=== PATIENT | male | born 1950 | race Caucasian/White ===

== ENCOUNTER 2019-01-21 16:11 | Inpatient (IN) ==
[2019-01-21] MEDS ORDERED: TYLENOL PO PRN (19:17)
[2019-01-21] MEDS ORDERED: ZOFRAN IV PRN (19:17)
[2019-01-21] MEDS ORDERED: ZOFRAN PO PRN (19:21)
[2019-01-21] MEDS ORDERED: PHENERGAN PO PRN (19:21)
[2019-01-21] MEDS ORDERED: XANAX PO PRN (19:21)
[2019-01-21 20:23] LABS: BASO# 0.05 X1000 (0.0-0.2); BASO% 0.7 % (0.0-0.8); EOS# 0.19 X1000 (0.0-0.7); EOS% 2.8 % (0.0-10.0); HEMATOCRIT 36.8 % (42.0-52.0); HEMOGLOBIN 11.9 g/dL (14.0-18.0); IMM GRAN# 0.05 X1000 (0.0-0.04); IMM GRAN% 0.7 % (0.0-0.5); LYMPH# 1.71 X1000 (1.2-3.4); LYMPH% 25.1 % (20.5-51.1); MCH 32.8 PG (27-31); MCHC 32.3 g/dL (33-37); MCV 101.4 FL (81-99); MONO# 1.22 X1000 (0.11-0.59); MONO% 17.9 % (1.7-9.3); MPV 9.1 FL (7.4-10.4); NEUT% 52.8 % (42.2-75.2); PLT 280 X1000 (130-400); RBC 3.63 XMIL (4.7-6.1); RDW 13.5 % (11.5-14.5); WBC 6.82 X1000 (4.8-10.8)
[2019-01-21 20:34] LABS: INR 1.11; PROTIME 15.2 Seconds (11.0-16.0)
[2019-01-21 20:40] LABS: AGAP 11; ALB/GLOB RATIO 0.8; ALKALINE PHOSPHATASE 184 U/L (32-122); BUN 10 mg/dL (8-22); CALCIUM 8.6 mg/dL (8.8-10.2); CHLORIDE 99 mmol/L (98-107); COSMO 279; CREATININE 0.6 mg/dL (0.7-1.2); ESTIMATED GFR > 60; GLUCOSE 168 mg/dL (70-104); GOT 11 U/L (10-34); GPT 21 U/L (10-44); MAGNESIUM 2.3 mg/dL (1.5-2.7); POTASSIUM 3.3 mmol/L (3.5-5.1); SODIUM 138 mmol/L (136-145); TCO2 28 mmol/L (25-35); TOTAL BILIRUBIN 0.56 mg/dL (0.20-1.00)
[2019-01-21] MEDS ORDERED: KLOR-CON PO ONE (20:48)
[2019-01-21] MEDS ORDERED: NICODERM PATCH TD ONE (20:55)
[2019-01-21 20:58] LABS: URINE SOURCE CLEAN CATCH
[2019-01-21 21:03] LABS: BILIRUBIN URINE NEGATIVE (NEGATIVE); BLOOD URINE NEGATIVE (NEGATIVE); COLOR YELLOW; GLUCOSE URINE NEGATIVE (NEGATIVE); KETONE URINE NEGATIVE (NEGATIVE); LEUKOCYTES URINE NEGATIVE (NEGATIVE); NITRITE URINE NEGATIVE (NEGATIVE); PROTEIN URINE 30 mg/dL (NEGATIVE); SP GRAVITY URINE 1.016; TURBIDITY URINE CLEAR (CLEAR); UROBILINOGEN URINE 4 mg/dL (NORMAL)
[2019-01-21 21:09] LABS: UR EPITHELIAL CELLS <10 /HPF (<10); URINE BACTERIA NEGATIVE /HPF; URINE RBC <10 /HPF (<10); URINE WBC <10 /HPF (<10)
[2019-01-21 21:17] LABS: URINE CASTS NONE SEEN; URINE CRYSTALS CA OXALATE PRESENT; URINE YEAST NONE SEEN
--- NOTE | 2019-01-21 22:16 | HISTORY AND PHYSICAL ---
PRIMARY CARE PROVIDER: Dr. Bass. REASON FOR ADMISSION: Three-day history of chills and right upper quadrant pain. HISTORY OF PRESENT ILLNESS: Mr. Lloyd Chapman is a 68-year-old male with past medical history of pancreatic cancer, status post Whipple procedure in April of last year. He complains to his oncologist, Dr. Bass, that he had been having right upper quadrant pain with chills. Some blood cultures were drawn and he was positive for gram-negative rods. He was then referred to see Dr. Dangelo's office for possible stent. The patient had a CT scan done two days ago and it showed increase interval of amorphous pancreatic head mass with worsening surrounding peripancreatic inflammatory change and worsening hepatic metastatic disease. Dr. Dangelo saw the patient and recommended that in light of history of chills, possible infection, that he needs to be admitted for antibiotic treatment before any consideration for any stent may be offered. The patient admits to having intermittent dark urine for the last one week but no pruritus, no pale stools. He says he has pain in the right upper quadrant area and this started about the same time as the aforementioned chills, although there was no fever. He says the pain is dull and achy, nonradiating, worse with movement and eating and gets better when he keeps still. He denies any genitourinary complaints. No cardiorespiratory complaints other than a chronic cough. He also complains of chronic nausea, which he has been dealing with over the last one year, but this has not worsened, no vomiting. He experiences occasional constipation. He says since his diagnosis he has lost about 100 pounds. His appetite is as noted optimal for several months. REVIEW OF SYSTEMS: A 12-system review was done with positive findings as per HPI. ALLERGIES: No known allergies. HOME MEDICATIONS: He takes Xanax 0.5 mg p.r.n. He was also prescribed Augmentin 875 mg b.i.d., multivitamin tablets once a day, lidocaine cream p.r.n. to affected area, Phenergan 25 mg q six hours p.r.n., Protonix 40 mg daily, Reglan 10 mg t.i.d. with meals, vitamin D complex once daily, zinc 100 mg daily, Zofran 4 mg q six hours p.r.n., and [place] one q four hours p.r.n. SOCIAL HISTORY: Still smokes two packs a day. No alcohol or drug use. FAMILY HISTORY: Notable for heart disease, brain cancer, and diabetes. SURGICAL HISTORY: Other than the aforementioned Whipple procedure, he has had inguinal hernia repair, cholecystectomy, knee, shoulder, and back surgeries. LABORATORY WORK: White count 6000, hemoglobin 12, hematocrit 36, MCV 101, platelet count 280,000; grossly normal differential. Potassium 3.3, BUN 10, creatinine 0.3, glucose 168. Transaminases normal. Alkaline phosphatase 184. Albumin 3.0. PT 15. PTT 43. Blood cultures pending. Urinalysis is also pending. IMAGING: Chest films pending. PHYSICAL EXAMINATION: VITAL SIGNS: Blood pressure 122/78, heart rate 76, respiratory rate 16, temperature 97.6, 92% on room air. GENERAL: He is a middle-aged man who is not in acute distress. He is alert and oriented x3. Normal mood and affect. HEAD: Normocephalic, atraumatic. EYES: PERRLA. EOMI. He is anicteric, not pale. ENT: Oropharyngeal exam is grossly normal. NECK: Supple. No JVD or carotid bruits. No thyromegaly. No lymphadenopathy. CHEST: He has a few bibasilar crepitations, right greater than left. No wheezes. Decreased entry in the bases of the lungs. CARDIOVASCULAR: First and second heart sounds heard. No gallops or rubs. Rhythm is regular. ABDOMEN: Slightly protuberant. Soft with tenderness confined to the right upper quadrant. No rebound or guarding. No mass or organomegaly appreciated. Bowel sounds are normal. RECTAL: Exam is deferred at this time. EXTREMITIES: There is no edema, clubbing, or peripheral cyanosis. Pulses distally are 1+ in all extremities, regular and symmetrical. NEUROLOGIC: No focal deficits. SKIN: Intact. No breakdown lesions seen. MUSCULAR: Grossly normal. ASSESSMENT: 1. Pancreatic cancer. 2. Gram-negative jeffry bacteremia. Possibly from biliary source. 3. Probable chronic obstructive pulmonary disease. 4. Tobacco use. 5. Macrocytic anemia. PLAN: This patient will be started on Zosyn to cover for gram-negative rods and anaerobes in the biliary system. Blood cultures have been drawn. The patient will be treated symptomatically in the interim. Will consult Dr. Bass to see the patient and will suspect Dr. Dangelo will also be consulted to follow along. High dose NicoDerm patches will be administered for smoking cessation. DVT prophylaxis will also be instituted as patients with this malignancy are at increased risk for DVT and PE. Other than that, other supportive measures will be continued, i.e. antiemetics. Also, IV fluids. Replace potassium and transfer care to hospitalist team in the a.m. cc: MD Liam Trevino MD
--- NOTE | 2019-01-21 22:17 | Diag Imaging Result Doc PS360 ---
CHEST-2 VIEWS - 01/21/2019 INDICATION: bacteremia COMPARISON: 02/03/2018 FINDINGS: There is a right chest port in good position. There is some trace atelectasis in the lateral left lung base. No infiltrates or edema. No pneumothorax or significant pleural effusion. Heart size is normal. IMPRESSION: Trace linear atelectasis in the lateral left lung base. Electronically signed by Andrey Saul 01/21/2019 10:15 PM
[2019-01-21] MEDS: LOVENOX SUBQ SCH (23:06)
[2019-01-21] MEDS: ZOSYN 3.375 GM in NS 50 ML IV SCH (23:07)
[2019-01-21] MEDS: NS 1,000 ML IV SCH (23:07)
[2019-01-21] MEDS: NORCO-7.5 PO PRN (23:26)
[2019-01-22] MEDS: NS 1,000 ML IV SCH ×5 (02:16→21:12)
[2019-01-22] MEDS: REGLAN PO SCH ×4 (05:06→16:28)
[2019-01-22] MEDS: ZOSYN 3.375 GM in NS 50 ML IV SCH ×4 (05:06→23:51)
[2019-01-22 07:58] LABS: TSH 2.65 uIUmL (0.27-4.20)
[2019-01-22] MEDS: PROTONIX PO SCH (08:28)
[2019-01-22] MEDS: CENTRUM SILVER PO SCH (08:28)
[2019-01-22] MEDS: NORCO-7.5 PO PRN (08:28)
[2019-01-22] MEDS: ZINC SULFATE PO SCH (08:28)
[2019-01-22] MEDS: NICODERM PATCH TD SCH (08:31)
--- NOTE | 2019-01-22 08:40 | HEMO/ONC CONSULTATION ---
DATE: 01/22/2019 CHIEF COMPLAINT: We are being consulted for further management for the patient's metastatic pancreatic cancer. HISTORY OF PRESENT ILLNESS: Mr. Chapman is a 68-year-old male that presented to the office on Saturday, not feeling well, in for his next round of chemotherapy. At that time, he had some fevers, chills, and right upper quadrant pain. At that time, due to fevers blood cultures were drawn, and the patient was also found in the office that day to have an elevated total bilirubin of 3.13. Due to the right upper quadrant pain, he was also sent for CT scan. The next day, he came back for results and was found to may have an obstruction there, and he was referred to Dr. Dangelo for an ERCP as soon as possible. Blood cultures did come back gram- negative diplococci at that time as well. So, the patient was sent to the hospital to be admitted for IV antibiotics for his bacteremia, and once the patient has had a couple rounds of antibiotics, would hopefully have ERCP with Dr. Dangelo while he is in the hospital. Mr. 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 The patient underwent pancreatic duodenectomy and wedge resection of liver lesion on 02/18/2018. He received Gemzar adjuvant chemotherapy that was started in May of 2018. Due to recurrent issues with abdominal wound infections, only received 3 cycles at that time. On 12/12/2018, PET scan showed diffuse metastatic disease, and on 12/29/2018 patient was started on Gemzar and Abraxane therapy. PAST MEDICAL HISTORY: Pancreatic cancer. PAST SURGICAL HISTORY: Inguinal hernia repair, shoulder, knee surgeries, back surgery and Whipple procedure. SOCIAL HISTORY: Smokes 2 packs a day. No alcohol or illicit drug use. FAMILY HISTORY: Heart disease, brain cancer and diabetes. ALLERGIES: No known drug allergies. HOME MEDICATIONS: Xanax, Augmentin, multivitamin, Phenergan, Protonix, vitamin D, zinc, Zofran and [place]. REVIEW OF SYSTEMS: Negative as mentioned in HPI. PHYSICAL EXAM: Vital Signs: Temperature 97.9 degrees, heart rate 59, respiratory rate 18, blood pressure 120/72, satting 96% on room air. General: Patient is awake, lying in bed, no acute distress noted. HEENT: Anicteric. Pupils PERRLA. Mucous membranes moist. Neck: Supple. Trachea midline. No JVD. Lymph node survey: No palpable lymphadenopathy. Cardiovascular: S1, S2. Regular rate and rhythm. Chest: Bilateral breath sounds. Clear to auscultation. Abdomen: Soft, mildly tender in right upper quadrant. No hepatosplenomegaly noted. Extremities: Warm, dry and intact. No edema. Skin: No petechiae, no rashes. No clubbing, no cyanosis. Neurologic: Alert and oriented x3. No focal deficits noted. LABORATORY DATA: White blood cell count 6.82, hemoglobin 11.9, hematocrit 36.8, platelets are 280. Potassium 3.3, BUN 10, creatinine 0.6. Total bilirubin 0.56. ASSESSMENT AND PLAN: 1. Metastatic pancreatic cancer: Just received last dose of chemotherapy on 01/05/2019 with Abraxane only. At this time chemotherapy is on hold until patient gets better. 2. Gram-negative bacteremia: Continue antibiotics as ordered by primary medical team. Continue to monitor closely. 3. Cholangitis: Plan is for the patient to have endoscopic retrograde cholangiopancreatography on Saturday with Dr. Dangelo. Continue to monitor closely. Continue recommendations per Primary Care and Gastroenterology. 4. Tobacco abuse: Nicotine cessation education given. Plan of care is discussed with Dr. Bass. Dictated by AKOSUA Mojica for Liam Bass MD Patient seen and examined. As above. Patient has a history of metastatic pancreatic cancer as described above. Recently he presented with shaking chills. We obtained blood cultures and started him on Augmentin. Lab data revealed mildly increasing bilirubin and culture data revealed gram-negative rods suggesting cholangitis. He was admitted for IV antibiotics and ERCP with possible stent placement. Liam Bass M.D. cc: AKOSUA Mojica MD [facility]
--- NOTE | 2019-01-22 15:46 | PROGRESS NOTE ---
DATE: 01/22/2019 SUBJECTIVE: The patient resting comfortably in bed. OBJECTIVE: Vital signs: Vital signs are as follows: Temperature 97.7 degrees, pulse 64, respiratory rate 16, blood pressure 127/86, O2 saturation is 95%. HEENT: Atraumatic, normocephalic. Cardiovascular system: S1, S2. Respiratory system: Has evidence of good air entry bilaterally. Abdomen: Soft, nontender. No masses felt. Extremities: No evidence of edema. Central nervous system: No obvious focal deficit noted. LABORATORY DATA: Ferritin level 779, B 12 level 1448, folate 16.3, TSH 2.65. ASSESSMENT AND PLAN: 1. Gram-negative bacteremia. Continue antibiotics and follow up on culture report. 2. Cholangitis. Possibly endoscopic retrograde cholangiopancreatography will be done by the Gastroenterology team. Continue antibiotics 3. Metastatic pancreatic cancer. Oncology following. 4. Nicotine use. Nicotine patch recommended. 5. Chronic obstructive pulmonary disease. Use nebulized bronchodilators as needed. 6. Deep vein thrombosis prophylaxis. Sequential compression devices. 7. Gastrointestinal prophylaxis. Proton pump inhibitor. cc: Rene Wood MD [facility]
[2019-01-22] MEDS: LOVENOX SUBQ SCH (19:52)
[2019-01-23] MEDS: ZOSYN 3.375 GM in NS 50 ML IV SCH ×2 (04:02→12:26)
[2019-01-23] MEDS: NS 1,000 ML IV SCH (04:02)
[2019-01-23] MEDS: REGLAN PO SCH ×2 (06:22→12:25)
[2019-01-23 06:46] LABS: BASO# 0.05 X1000 (0.0-0.2); BASO% 0.8 % (0.0-0.8); EOS# 0.18 X1000 (0.0-0.7); EOS% 2.9 % (0.0-10.0); HEMATOCRIT 36.1 % (42.0-52.0); HEMOGLOBIN 11.7 g/dL (14.0-18.0); IMM GRAN# 0.07 X1000 (0.0-0.04); IMM GRAN% 1.1 % (0.0-0.5); LYMPH# 1.98 X1000 (1.2-3.4); LYMPH% 32.4 % (20.5-51.1); MCH 32.7 PG (27-31); MCHC 32.4 g/dL (33-37); MCV 100.8 FL (81-99); MONO# 1.07 X1000 (0.11-0.59); MONO% 17.5 % (1.7-9.3); MPV 9.1 FL (7.4-10.4); NEUT# 2.76 X1000 (1.4-6.5); NEUT% 45.3 % (42.2-75.2); PLT 253 X1000 (130-400); RBC 3.58 XMIL (4.7-6.1); RDW 13.3 % (11.5-14.5); WBC 6.11 X1000 (4.8-10.8)
[2019-01-23 07:30] LABS: AGAP 10; ALB/GLOB RATIO 0.7; ALBUMIN 2.6 g/dL (3.5-5.0); ALKALINE PHOSPHATASE 151 U/L (32-122); BUN 4 mg/dL (8-22); CALCIUM 7.9 mg/dL (8.8-10.2); CHLORIDE 105 mmol/L (98-107); COSMO 279; CREATININE 0.6 mg/dL (0.7-1.2); ESTIMATED GFR > 60; GLUCOSE 146 mg/dL (70-104); GOT 11 U/L (10-34); GPT 14 U/L (10-44); POTASSIUM 4.1 mmol/L (3.5-5.1); SODIUM 140 mmol/L (136-145); TCO2 25 mmol/L (25-35); TOTAL BILIRUBIN 0.46 mg/dL (0.20-1.00); TOTAL PROTEIN 6.3 g/dL (6.3-8.3)
--- NOTE | 2019-01-23 08:21 | HEMO/ONC PROGRESS NOTE ---
DATE: 01/23/2019 SUBJECTIVE: The patient denies any complaints at this time. Patient is slightly feeling better. OBJECTIVE: Vital Signs: Temperature 97.9 degrees, heart rate 58, respiratory rate 19, blood pressure is 143/66, saturation 99% on room air. General: Patient is awake, lying in bed, no acute distress noted. HEENT: Anicteric. Pupils PERRLA. Mucous membranes moist. Cardiovascular: S1, S2. Regular rate and rhythm. Chest: Bilateral breath sounds clear to auscultation. Abdomen: Soft, nontender. Bowel sounds present in all 4 quadrants Neurologic: Alert and oriented x3. No focal deficits noted. LABORATORY DATA: White blood cell count 6.11, hemoglobin 11.7, hematocrit 36.1, platelets are 253,000. Potassium 4.1, BUN 4, creatinine 0.6, total bilirubin 0.46. ASSESSMENT AND PLAN: 1. Metastatic pancreatic cancer: Chemotherapy on hold at this time until patient gets better. Continue to monitor. 2. Gram-negative bacteremia: Continue antibiotics as ordered per primary medical team. Continue to monitor closely. 3. Cholangitis: Gastroenterology has been consulted. Continue to monitor. Continue recommendations per primary and gastroenterology. 4. Supportive care: Continue to help patient get out of bed as much as possible. Continue to have patient work on strength exercises. Plan of care was discussed with Dr. Bass. Dictated by AKOSUA Mojica for Liam Bass MD cc: AKOSUA Mojica MD
[2019-01-23] MEDS ORDERED: CULTURELLE PO SCH (09:00)
[2019-01-23] MEDS ORDERED: XANAX PO PRN (09:37)
[2019-01-23] MEDS: NICODERM PATCH TD SCH (09:51)
[2019-01-23] MEDS ORDERED: XYLOCAINE-MPF 2% ONE (10:38)
[2019-01-23] MEDS ORDERED: ROBINUL ONE (10:38)
[2019-01-23] MEDS ORDERED: VERSED ONE (10:38)
[2019-01-23] MEDS ORDERED: DIPRIVAN 1% ONE (10:38)
--- NOTE | 2019-01-23 12:01 | PROGRESS NOTE ---
DATE: 01/23/2019 SUBJECTIVE: The patient is resting comfortably in bed. He denies having any pain or fever. OBJECTIVE: Vital Signs: Temperature 97.8 degrees, blood pressure 147/66, heart rate 59, respirations 16, and O2 saturation 95% on room air. General: This is a chronically ill-appearing elderly male lying in bed in no acute distress. Heart: S1, S2. Normal. Bradycardic. Lungs: Equal air entry bilaterally. No wheezing. No rales. No rhonchi. Abdomen: Positive bowel sounds. Soft, nontender, and nondistended. Extremities: No edema. No cyanosis. No calf tenderness. Neurologic: The patient is alert and oriented x3. LABORATORY: Sodium 140, potassium 4.1, chloride 105, CO2 25, BUN 4, creatinine 0.6 glucose 146, calcium 7.9, AST 11, ALT 14, alkaline phosphatase 151. White blood cell count 6.1, hemoglobin 11, hematocrit 36, and platelets 253,000. ASSESSMENT AND PLAN: 1. Cholangitis. The patient's blood cultures done as outpatient are growing gram-negative rods. The patient is currently on Zosyn. He is also scheduled for an ERCP today. Further management as per GI. 2. Metastatic pancreatic cancer. Aware. Management as per Dr. Bass. 3. Bacteremia. So far, the cultures done in the hospital remain negative. We will continue with antibiotic therapy. 4. Deep vein thrombosis prophylaxis. The patient is on Lovenox. cc: Aye eHath MD MTDD
[2019-01-23 12:09] VITALS: BP 149/86
[2019-01-23] MEDS: PROTONIX PO SCH (12:24)
[2019-01-23] MEDS: ZINC SULFATE PO SCH (12:24)
[2019-01-23] MEDS: CENTRUM SILVER PO SCH (12:24)
--- NOTE | 2019-01-23 14:50 | OPERATIVE NOTE ---
PROCEDURE DATE: 01/23/2019 PROCEDURE: Esophagogastroduodenoscopy. PREOPERATIVE DIAGNOSIS: Cholangitis possibly ERCP. POSTOPERATIVE DIAGNOSIS: Status post pancreatic duodenectomy with Candace-en-Y. Unable to locate ampullary area. Free amount of bile in the examined portion of the small bowel. DESCRIPTION OF PROCEDURE: After informed consent and adequate intravenous sedation by Anesthesia under general, the scope introduced in the esophagus which is normal. Cardia, fundus and body normal. The patient has what appears to be antrectomy and pancreatoduodenectomy with Candace-en-Y. There is bile throughout bowel loops, however, I could not locate the ampullary area which is not unusual. The scope was withdrawn. The patient tolerated the procedure well without any immediate complications. The patient is better. Recent blood cultures were negative. The patient can be discharged outpatient on p.o. antibiotics. cc: Kell Dangelo MD
--- NOTE | 2019-01-23 17:35 | INFECTIOUS DISEASE CONSULT REP ---
DATE: 01/23/2019 CONCLUSION: The patient has an E coli bacteremia. I think it originates from an intra-abdominal focus related to the fact that the patient has disseminated pancreatic cancer. RECOMMENDATIONS: I agree with sending the patient home. I have through the computer produced a prescription for Levaquin 500 mg daily for a total of 2 weeks. DISCUSSION: The patient has metastatic pancreatic cancer. He for the past 3 weeks has had fever and chills. He has not had any cough or dysuria. He is not complaining of any abdominal pain. Laboratory studies thus far show a CBC with a white count of 6110, hemoglobin 11.7, and platelet count of 253,000. Creatinine is 0.6. GFR is greater than 60. Alkaline phosphatase was 151. Urinalysis showed no white cells or bacteria. Blood culture grew E coli. Repeat blood culture and urine culture are negative. Chest x-ray shows a left basilar atelectasis. PAST MEDICAL HISTORY/REVIEW OF SYSTEMS: Eyes and ears: He denies any trouble hearing or seeing. Neck: No stiffness. Respiratory: No cough or shortness of breath. GI: No nausea, vomiting, or diarrhea. : No dysuria or flank pain. Integument: No rash. Neurologic: No seizures. No loss of motor or sensory function recently. Endocrine: The patient is not a diabetic and he does not have thyroid disease. PREVIOUS HOSPITALIZATIONS AND OPERATIONS: He has had a Whipple procedure. He has also had infections of the incision 2 separate times and it occurred after he received chemotherapy. The patient has also had shoulder surgery, knee surgeries, and laminectomy. The patient does not have any metallic material in him or any other foreign material in him. MEDICAL DISEASES: Positive for pancreatic cancer. INFECTIOUS DISEASE HISTORY: Negative for UTI and pneumonia. FAMILY HISTORY: Positive for diabetes mellitus and cancer. SOCIAL HISTORY: [place] He smokes cigarettes. He does not drink alcoholic beverages or abuse drugs. He has a dog as a pet. He delivers newspapers. ALLERGIES: The patient's chart lists no known drug allergies. MEDICATIONS: His medicines taken at home include 1. Augmentin. 2. Alprazolam. 3. Hydrocodone. 4. Reglan. 5. Vitamins and minerals. 6. Zofran. 7. Protonix. 8. Phenergan. PHYSICAL EXAMINATION: Vital Signs: Temperature is 97.7 degrees, pulse 61, respirations 14, blood pressure 147/66. The patient weighs 185 pounds. General: This is a somewhat ill-appearing elderly male. He is in no acute distress. Head, eyes, ears, nose, and throat: He can hear my spoken words and see near objects. He does not have any white patches on his tongue. I did not see any necrotic teeth or teeth with caries. Neck: No stiffness. Lungs: Clear to auscultation. Cardiovascular: Regular heart rate. Abdomen: Soft and nontender. The patient's incision from his Whipple procedure is intact. It is not erythematous or draining. Neurologic: The patient is alert. He can move his extremities. There is no tremor. Integument: No rash noted. Thank you for the consult. cc: Florentin Celis MD
--- NOTE | 2019-01-24 07:12 | DISCHARGE SUMMARY ---
ADMISSION DATE: 01/21/2019 DISCHARGE DATE: 01/23/2019 FINAL DISCHARGE DIAGNOSES: 1. Cholangitis. 2. Gram-negative bacteremia. 3. Metastatic pancreatic cancer. 4. Anemia of chronic disease. PROCEDURES PERFORMED: EGD which revealed bile in the small bowel. CONSULTATIONS REQUESTED DURING THIS HOSPITAL STAY: GI consultation with Dr. Dangelo. HOSPITAL COURSE: Mr. Chapman is a 68-year-old male with a history of metastatic pancreatic cancer who was admitted with suspicion of cholangitis. Prior to admission, the patient had blood cultures done at Dr. Bass's office that revealed gram-negative rods. The patient was admitted for further treatment and evaluation. GI was consulted and an ERCP was attempted; however, the endoscopy this was unable to locate the ampullary area. The patient underwent an EGD instead which revealed bile in the small bowel. The patient was seen by Dr. Celis who recommended Levaquin 500 mg oral daily. DISCHARGE MEDICATIONS: 1. Levaquin 500 mg p.o. daily. 2. Protonix 40 mg p.o. daily. 3. Phenergan 25 mg p.o. every 6 hours p.r.n. 4. [place] 7.5/325 one tab oral every 6 hours p.r.n. 5. Xanax 0.5 mg p.o. q.6 hours p.r.n. 6. Multivitamin 1 tab oral daily. DISCHARGE DIET: GI soft diet. ACTIVITY: As tolerated. FOLLOWUP INSTRUCTIONS: The patient will need to follow up with Dr. Bass as scheduled by his clinic. cc: Aye Heath MD
== END 2019-01-23 15:02 | disposition home or self-care (01) | DRG 445 ==
LOC: SUATTDRO 16:11 → DIRADM 16:11 → 3N 17:18
PROVIDERS: ATTEND Internal Medicine
PROC: EN.ERCP (2019-01-23 11:10)
CPT/HCPCS: 71020; 71046; 74160; 74328; 80053; 81001; 82607; 82728; 82746; 83735; 84443; 85025; 85610; 85730; 87040; 87088; A9270; J1650; J2250; J2543; J7030; Q9966; Q9967

== ENCOUNTER 2020-01-11 12:46 | Inpatient (IN) ==
[2020-01-11] MEDS ORDERED: NS 1,000 ML IV ONE (13:15)
[2020-01-11 14:02] LABS: BASO# 0.01 X1000 (0.0-0.2); BASO% 0.2 % (0.0-0.8); EOS# 0.03 X1000 (0.0-0.7); EOS% 0.6 % (0.0-10.0); HEMATOCRIT 42.1 % (42.0-52.0); IMM GRAN# 0.06 X1000 (0.0-0.04); IMM GRAN% 1.1 % (0.0-0.5); LYMPH# 0.35 X1000 (1.2-3.4); LYMPH% 6.6 % (20.5-51.1); MCH 34.5 PG (27-31); MCHC 33.3 g/dL (33-37); MCV 103.7 FL (81-99); MONO# 0.46 X1000 (0.11-0.59); MONO% 8.7 % (1.7-9.3); NEUT# 4.38 X1000 (1.4-6.5); NEUT% 82.8 % (42.2-75.2); RBC 4.06 XMIL (4.7-6.1); RDW 13.1 % (11.5-14.5); WBC 5.29 X1000 (4.8-10.8)
[2020-01-11 14:05] LABS: PLT 3 X1000 (130-400)
[2020-01-11 14:06] LABS: AGAP 12; ALKALINE PHOSPHATASE 309 U/L (32-122); BUN 16 mg/dL (8-22); CALCIUM 8.5 mg/dL (8.8-10.2); CHLORIDE 101 mmol/L (98-107); COSMO 281; CREATININE 0.5 mg/dL (0.7-1.2); ESTIMATED GFR > 60; GLUCOSE 199 mg/dL (70-104); GOT 58 U/L (10-34); GPT 20 U/L (10-44); POTASSIUM 5.1 mmol/L (3.5-5.1); SODIUM 137 mmol/L (136-145); TCO2 24 mmol/L (25-35); TOTAL PROTEIN 6.3 g/dL (6.3-8.3)
[2020-01-11 14:09] LABS: EOS 2 % (1-10); LYMPHS 6 % (21-51); MONO 2 % (1-9); SEGS 90 % (42-75)
[2020-01-11] MEDS ORDERED: NS 500 ML IV ONE (14:54)
[2020-01-11] MEDS ORDERED: NORCO-10 PO PRN (15:22)
[2020-01-11] MEDS ORDERED: PHENERGAN PO PRN (15:22)
[2020-01-11 15:30] LABS: INR 1.28; PROTIME 16.7 Seconds (11.0-16.0)
--- NOTE | 2020-01-11 15:43 | Diag Imaging Result Doc PS360 ---
EXAM: CHEST-2 VIEWS HISTORY: r/o pna TECHNIQUE: Two views COMPARISON: None. FINDINGS: The lungs are well expanded except for atelectasis or scarring in the left lung base. The heart is not enlarged. Right jugular portacatheter. No pneumothorax. The vessels are not distended. There are no infiltrates. No pleural effusions. IMPRESSION: No pneumonia Electronically signed by Ludwin Rojas 01/11/2020 3:40 PM
--- NOTE | 2020-01-11 15:44 | Diag Imaging Result Doc PS360 ---
EXAM: ABDOMEN FLAT/UPRIGHT HISTORY: n/v/abd pain TECHNIQUE: Two views COMPARISON: None. FINDINGS: No free air beneath the diaphragm. No organomegaly. Prominent stool throughout the colon. No bowel obstruction. Calcifications are sutures in the mid left abdomen. There are pelvic phleboliths. IMPRESSION: Severe constipation Electronically signed by Ludwin Rojas 01/11/2020 3:42 PM
[2020-01-11] MEDS ORDERED: ZOFRAN IV PRN (15:48)
[2020-01-11] MEDS ORDERED: NS 1,000 ML IV SCH (15:48)
--- NOTE | 2020-01-11 16:04 | EKG Report ---
Test Performed on : 01/11/2020 1:17:47 PM Test Reason : weakness Blood Pressure : / mmHG Vent. Rate : 097 BPM Atrial Rate : 097 BPM P-R Int : 138 ms QRS Dur : 088 ms QT Int : 346 ms P-R-T Axes : 033 063 052 degrees QTc Int : 439 ms Normal sinus rhythm. Normal ECG When compared with ECG of 03-FEB-2018 11:11, No significant change was found Unconfirmed Result
[2020-01-11] MEDS: DUONEB (A & A) INH SCH ×2 (16:17→22:16)
[2020-01-11 16:23] LABS: URINE SOURCE CLEAN CATCH
--- NOTE | 2020-01-11 16:45 | HISTORY AND PHYSICAL ---
PRIMARY CARE PROVIDER: No one. PRIMARY ONCOLOGIST: Liam Bass MD CHIEF COMPLAINT: Weakness, dizziness, bruises, shortness of breath, exhaustion for at least 2 weeks and a 20 pound weight loss in a month. HISTORY OF PRESENT ILLNESS: Mr. Lloyd Chapman is a 69-year-old male with a medical history of pancreatic cancer with liver metastasis for at least the last year and a half, also history of chronic nausea with anxiety, chronic pain syndrome, and he smokes 2 packs of cigarettes per day. States that for the last 2 weeks he has had weakness, shortness of breath with activity, nausea, vomiting, dizziness, bruises that he is not sure how even got them and constipation. His last bowel movement was about a week ago. Symptoms have progressively gotten worse. So, he came in to seek medical attention. He has also had a 20 pound weight loss in the past month. Platelet count here is 3. We will transfuse him with platelets and send him to [facility] for further evaluation and treatment with a consult in for Dr. Bass. PAST MEDICAL HISTORY: 1. Pancreatic cancer with liver metastasis for year and a half status post Whipple. 2. Chronic nausea. 3. Anxiety. 4. Chronic pain syndrome. 5. Most likely COPD as he is a heavy smoker. SURGICAL HISTORY: 1. Port placement. 2. Whipple procedure. 3. Bilateral knee surgery. 4. Back surgery. 5. Left shoulder surgery. SOCIAL HISTORY: Two pack per day smoker since the age of 19. No chewing tobacco. No alcohol. No illicit drug use. , 1 child. Walks without difficulties. FAMILY HISTORY: Mother had uterine cancer. Father had metastasized cancer with unknown primary source. ALLERGIES: No known drug allergies. HOME MEDICATIONS: 1. Trazodone 25 mg p.o. nightly. 2. Moxifloxacin 400 mg p.o. daily. 3. Climax 1 tablet p.o. 4 times a day p.r.n. 4. Phenergan 25 mg p.o. every 6 hours p.r.n. 5. Potassium 20 mEq p.o. twice daily. 6. Protonix 40 mg p.o. daily. 7. Reglan 10 mg p.o. 4 times a day. 8. Xanax 0.5 mg p.o. t.i.d. p.r.n. REVIEW OF SYSTEMS: Fourteen point review of systems are complete and all are negative except for those mentioned above HPI. PHYSICAL EXAMINATION: VITAL SIGNS: Temperature 98.2 degrees, heart rate 92, respiratory rate 25, blood pressure 127/82, O2 saturation 90% on 2 L nasal cannula. GENERAL: Mr. Lloyd Chapman is a 69-year-old male. He is in no acute distress. He is able to answer questions appropriately. HEENT: Atraumatic, normocephalic. Pupils equal, round, reactive to light. Extraocular movements intact. Mucous membranes are dry. NECK: Trachea midline. CARDIOVASCULAR: S1, S2. Tachycardic rate and rhythm. No rubs, gallops, murmurs. No lower extremity edema, +2 dorsalis and radial pulses. Negative JVD or carotid bruits. PULMONARY: Clear to auscultation. Bilateral breath sounds decreased in the bases. No accessory muscle use or work of breathing noted. He is tolerating 2 L nasal cannula. GASTROINTESTINAL: Soft tender in the left upper quadrant. Positive bowel sounds x4 but hypoactive. EXTREMITIES: Decreased range of motion. Equal strength. NEUROLOGIC: A and O x3. Follows commands. Sensory is intact. SKIN: Warm, dry, intact. LABORATORY DATA: White blood cells 5000, hemoglobin 14, hematocrit 42, platelet count 3000. INR is 1.28, PTT is 43. Sodium 137, potassium 5.1, BUN 16, creatinine 0.5, glucose 199, calcium 8.5, bilirubin is 1.00, AST 58, ALT 20, alkaline phosphatase is 309, albumin 3.0, amylase 16. IMAGING: Abdominal x-ray, no report yet. Chest x-ray, no report yet. ASSESSMENT AND PLAN: 1. Pancreatic cancer with metastasis to the liver, now status post Whipple procedure. He had radiation 2 weeks ago and states he has been having symptoms of dizziness, nausea, vomiting, bruising, constipation, weight loss. We will consult Dr. Bass. 2. Nausea, vomiting, weight loss, and constipation. We will add an antiemetic and stool softener. Follow up on the abdominal x-ray. 3. Thrombocytopenia, most likely with platelet dysfunction. He has got bruises all over his body that he is not sure where he even got them. He denies any active bleeding. We will give a pack of platelets for now. 4. Anxiety. Continue p.r.n. Xanax. 5. Chronic pain syndrome. Continue Climax 10s. 6. Dehydration to continue IV fluids. 7. Weight loss. Regular diet, nutritional consult, antiemetics for the nausea, Protonix for the reflux. 8. Tobacco abuse, cessation discussed. No nicotine patch for now. We will add that if he requests for it again. Dictated by AKOSUA Stacy for Jamaal Fernandez MD cc: AKOSUA Stacy MD
[2020-01-11 16:51] LABS: BILIRUBIN URINE SMALL (NEGATIVE); BLOOD URINE LARGE (NEGATIVE); COLOR YELLOW; GLUCOSE URINE NEGATIVE (NEGATIVE); KETONE URINE 20 mg/dL (NEGATIVE); LEUKOCYTES URINE NEGATIVE (NEGATIVE); NITRITE URINE NEGATIVE (NEGATIVE); PROTEIN URINE 70 mg/dL (NEGATIVE); SP GRAVITY URINE 1.028; TURBIDITY URINE HAZY (CLEAR); UR EPITHELIAL CELLS <10 /HPF (<10); URINE BACTERIA NEGATIVE /HPF; URINE RBC TNTC /HPF (<10); URINE SMALL ROUND CELLS NONE SEEN; URINE WBC <10 /HPF (<10); UROBILINOGEN URINE 4 mg/dL (NORMAL)
[2020-01-11 16:52] LABS: URINE CASTS NONE SEEN; URINE CRYSTALS URIC ACID PRESENT; URINE YEAST NONE SEEN
[2020-01-11] MEDS ORDERED: RELISTOR SUBQ ONE (18:59)
[2020-01-11] MEDS ORDERED: FLEET ENEMA PR ONE (19:01)
[2020-01-11] MEDS ORDERED: OFIRMEV 1000 MG/ISOTONIC SOLN 1,000 MG/100 ML BOTTLE IV PRN (19:01)
[2020-01-11] MEDS: REGLAN PO SCH ×2 (20:25→20:27)
[2020-01-11] MEDS: DESYREL PO SCH (20:27)
[2020-01-11] MEDS: TYLENOL PO PRN (20:28)
[2020-01-11] MEDS: XANAX PO PRN (20:29)
[2020-01-11 20:36] LABS: BASO# 0.01 X1000 (0.0-0.2); BASO% 0.2 % (0.0-0.8); EOS# 0.03 X1000 (0.0-0.7); EOS% 0.6 % (0.0-10.0); HEMATOCRIT 40.7 % (42.0-52.0); HEMOGLOBIN 13.3 g/dL (14.0-18.0); IMM GRAN# 0.04 X1000 (0.0-0.04); IMM GRAN% 0.7 % (0.0-0.5); LYMPH# 0.35 X1000 (1.2-3.4); LYMPH% 6.5 % (20.5-51.1); MCH 33.9 PG (27-31); MCHC 32.7 g/dL (33-37); MCV 103.8 FL (81-99); MONO% 9.3 % (1.7-9.3); MPV 9.7 FL (7.4-10.4); NEUT# 4.45 X1000 (1.4-6.5); NEUT% 82.7 % (42.2-75.2); PLT 9 X1000 (130-400); RBC 3.92 XMIL (4.7-6.1); RDW 13.2 % (11.5-14.5); WBC 5.38 X1000 (4.8-10.8)
[2020-01-11] MEDS: PERICOLACE PO SCH (20:36)
[2020-01-11] MEDS: MIRALAX PO SCH (20:42)
[2020-01-11] MEDS: CLINIMIX E 4.25%-5% SOLUTION 1,000 ML IV SCH (20:52)
[2020-01-11] MEDS: LIPOSYN 20% 250 ML IV SCH (20:53)
[2020-01-11] MEDS ORDERED: KLOR-CON PO SCH (21:00)
--- NOTE | 2020-01-11 21:50 | PROGRESS NOTE ---
DATE: 01/11/2020 Patient has a known history of cancer, currently on chemotherapy with Dr. Bass. He presented to the hospital not feeling well. Upon evaluation, he was noted to have a platelet count of 3000. We are going to admit in the hospital. IV fluids. Follow his blood pressures, give him platelet transfusion. Recheck and we will follow. We will consult Dr. Bass. cc: Jamaal Fernandez MD
[2020-01-11] MEDS: PULMICORT INH SCH (22:16)
[2020-01-12] MEDS: DUONEB (A & A) INH SCH ×4 (03:55→22:52)
[2020-01-12] MEDS: PROTONIX PO SCH (06:04)
[2020-01-12] MEDS: TYLENOL PO PRN (06:04)
[2020-01-12] MEDS: XANAX PO PRN ×3 (06:04→22:28)
[2020-01-12] MEDS: REGLAN PO SCH ×4 (06:05→21:34)
[2020-01-12 07:25] LABS: EOS# 0.03 X1000 (0.0-0.7); EOS% 0.6 % (0.0-10.0); HEMOGLOBIN 13.5 g/dL (14.0-18.0); IMM GRAN# 0.03 X1000 (0.0-0.04); IMM GRAN% 0.6 % (0.0-0.5); LYMPH# 0.17 X1000 (1.2-3.4); LYMPH% 3.7 % (20.5-51.1); MCH 35.1 PG (27-31); MCHC 34.6 g/dL (33-37); MCV 101.3 FL (81-99); MONO# 0.34 X1000 (0.11-0.59); MONO% 7.3 % (1.7-9.3); NEUT# 4.08 X1000 (1.4-6.5); NEUT% 87.8 % (42.2-75.2); RBC 3.85 XMIL (4.7-6.1); RDW 13.2 % (11.5-14.5); WBC 4.65 X1000 (4.8-10.8)
[2020-01-12 07:48] LABS: EOS 2 % (1-10); LYMPHS 6 % (21-51); SEGS 90 % (42-75)
[2020-01-12 07:52] LABS: AGAP 15; ALB/GLOB RATIO 0.9; ALBUMIN 2.8 g/dL (3.5-5.0); ALKALINE PHOSPHATASE 295 U/L (32-122); BUN 13 mg/dL (8-22); CALCIUM 8.3 mg/dL (8.8-10.2); CHLORIDE 102 mmol/L (98-107); COSMO 285; CREATININE 0.5 mg/dL (0.7-1.2); ESTIMATED GFR > 60; GLUCOSE 238 mg/dL (70-104); GOT 54 U/L (10-34); GPT 17 U/L (10-44); PLT 6 X1000 (130-400); POTASSIUM 4.7 mmol/L (3.5-5.1); SODIUM 139 mmol/L (136-145); TCO2 22 mmol/L (25-35); TOTAL BILIRUBIN 1.29 mg/dL (0.20-1.00); TOTAL PROTEIN 5.8 g/dL (6.3-8.3)
[2020-01-12] MEDS: PULMICORT INH SCH ×2 (08:08→22:52)
[2020-01-12 08:15] LABS: RETIC% 1.88 % (0.8-2.1); RETIC-HE 39.3 PG (28.2-36.6)
[2020-01-12] MEDS: MIRALAX PO SCH ×2 (08:34→21:34)
[2020-01-12] MEDS: PERICOLACE PO SCH ×2 (08:34→21:34)
[2020-01-12] MEDS: CLINIMIX E 4.25%-5% SOLUTION 1,000 ML IV SCH ×2 (08:34→22:27)
[2020-01-12] MEDS ORDERED: FLEET ENEMA PR PRN (09:00)
[2020-01-12] MEDS ORDERED: LEVAQUIN PO SCH (09:00)
[2020-01-12 09:04] LABS: IRON SATURATION 62 %; TIBC 154 ug/dL; TOTAL IRON 95 ug/dL (53-167); UNBOUND IRON 59 ug/dL (112-346)
--- NOTE | 2020-01-12 09:47 | PROVIDER DOCUMENTATION ---
This chart was entered by Lissa Kruger Scribe, acting as scribe for Jo Cyr MD. HPI-General Adult - General Chief Complaint: Weakness Stated Complaint: AMS Time Seen by Provider: 01/11/20 13:05 Source: patient, family Allergies/Adverse Reactions: Patient Allergies Allergy/AdvReac Type Severity Reaction Status Date / Time No Known Allergies Allergy Verified 01/11/20 13:08 Home Medications: Home Medication List Medication Instructions Recorded Confirmed Last Taken Type Metoclopramide [Reglan] 10 mg PO 4XDAY 05/20/18 01/11/20 01/21/19 09:00 History 10 mg Pantoprazole [Protonix] 40 mg PO DAILY 05/20/18 01/11/20 01/21/19 07:00 History 40 mg Promethazine [Phenergan] 25 mg PO Q6H PRN PRN 05/20/18 01/11/20 07/24/18 History Alprazolam [Xanax] 0.5 mg PO TID PRN 11/04/19 01/11/20 Unknown History Hydrocodone/Acetaminophen [[place] 1 tab PO 4XDAY PRN 11/04/19 01/11/20 Unknown History 10-325 Tablet] Potassium Chloride 20 meq PO BID 11/04/19 01/11/20 Unknown History Moxifloxacin [Avelox] 400 mg PO DAILY 01/11/20 01/11/20 Unknown History Trazodone [Desyrel] 25 mg PO QHS 01/11/20 01/11/20 Unknown History - History of Present Illness -Gen Adult Nature of Presenting Problems: Patient is a 69 year old male who presents with multiple complaints. States symptoms of weight loss, fatigue, weakness, nausea, vomiting and abdominal pain. History of pancreatic cancer with mets to liver that is followed by Dr. Bass. Family reports patient is currently on chemo and radiation. Location of Pain/Injury: reports: abdomen Pain Radiation: reports: no radiation Quality of Pain: reports: aching Severity: reports: mild Onset/Duration: reports: gradual Timing: reports: still present, getting worse Associated Symptoms: reports: fatigue, nausea, vomiting, weakness, other (weight loss) Similar Symptoms Previously?: Yes Recently seen or treated by another doctor?: No Review of Systems - Adult - REVIEW OF SYSTEMS - ADULT Constitutional: reports: see HPI, fatique, weight loss Eyes: reports: no symptoms reported Ears, Nose, Mouth & Throat: reports: no symptoms reported Cardiovascular: reports: no symptoms reported Respiratory: reports: no symptoms reported Gastrointestinal: reports: see HPI, abdominal pain, nausea, vomiting Genitourinary: reports: no symptoms reported Musculoskeletal: reports: see HPI, muscle weakness Integumentary: reports: no symptoms reported Neurological: reports: no symptoms reported Psychiatric: reports: no symptoms reported Endocrine: reports: no symptoms reported Hematologic/Lymphatic: reports: no symptoms reported Allergic/Immunologic: reports: no symptoms reported All Other Systems: Reviewed and Negative Past History - Adult - PAST MEDICAL HISTORY-ADULT Review of Records: reports: Old Records Reviewed, Nursing Assessment Review, Medications Reviewed, Social history reviewed & non-contributory. Major Childhood Illnesses: reports: denies history Cardiovascular: reports: denies history Respiratory: reports: denies history Gastrointestinal: reports: cancer (pancreatic with mets to liver), div erticulosis Obstetrical/Gynecological: reports: denies history Genitourinary: reports: denies history Musculoskeletal: reports: denies history Neurological: reports: denies history Psychiatric: reports: anxiety Endocrine/Immune: reports: denies history Other Conditions: reports: denies history - PRIOR SURGERIES/PROCEDURES Surgical/Procedure History: reports: orthopedic (extremity), back/neck - IMMUNIZATION STATUS Childhood Immunizations: See Nurse Assessment Flu Vaccine: See Nurse Assessment - FAMILY HISTORY Family History: reviewed, not pertinent - SOCIAL HISTORY Smoking: cigarettes, greater than 1 pack/day Provider spent 3-5 mins advising pt. on dangers of tobacco.: Discussed manners to quit use, and f/u contacts for add'l counseling. Substance Use: denies Living Situation: family Physical Exam-General - PHYSICAL EXAM-ADULT Initial Vital Signs Reviewed: Yes - CONSTITUTIONAL General Appearance: alert, no apparent distress, thin. negative: lethargic - HEAD, EARS, NOSE, MOUTH & THROAT HENMT: normocephalic/atraumatic, moist mucous membranes - RESPIRATORY Respiratory: chest non-tender, lungs clear, normal breath sounds. negative: rhonchi - CARDIOVASCULAR Cardiovascular: regular rate, rhythm. negative: tachycardia - GASTROINTESTINAL (ABDOMEN) Abdominal Exam: normal bowel sounds, soft, tenderness (epigastric). negative: guarding - MUSCULOSKELETAL Extremity: non-tender, normal inspection. negative: pedal edema - SKIN Integumentary: normal color, normal turgor, warm/dry. negative: diaphoresis - NEUROLOGIC Neurologic: grossly normal. negative: aphasia, facial droop - PSYCHIATRIC Psych/Mental Status: normal mood/affect, normal thought content, normal thought process, oriented x 3. negative: paranoid Progress - PLAN OF CARE/RESULTS Progress/Plan/Lab Results: Vital Signs - 8 hr 01/11/20 12:54 Temperature 98.2 F Pulse Rate 101 H Respiratory Rate 18 Blood Pressure 128/75 O2 Sat by Pulse Oximetry 97 Orders Category Date Time Status Saline Loc NOW Care 01/11/20 13:15 Active CBC WITH DIFF [HEME] Stat Lab 01/11/20 13:15 Uncollected COMPREHENSIVE METABOLIC PANEL [CHEM] Stat Lab 01/11/20 13:15 Uncollected 0.9% Sodium Chloride Inj [Ns] 1,000 ml Med 01/11/20 13:15 Active IV 999 mls/hr Result Diagrams: 01/12/20 06:47 01/12/20 06:47 - EKG 1 Time of EKG reading by physician:: 13:17 EKG Read and Signed by:: Jo Cyr EKG Interpretation (*Must complete 3 of following elements*): Normal Rate: 97 Rhythm: NSR [place]: normal QRS: normal IA Interval: normal ST Wave: normal Comments: normal ECG - XRAY 1 XRAY Study: Chest Impression: See EMR Report ( EXAM: CHEST-2 VIEWS HISTORY: r/o pna TECHNIQUE: Two views COMPARISON: None. FINDINGS: The lungs are well expanded except for atelectasis or scarring in the left lung base. The heart is not enlarged. Right jugular portacatheter. No pneumothorax. The vessels are not distended. There are no infiltrates. No pleural effusions. IMPRESSION: No pneumonia Electronically signed by Ludwin Rojas 01/11/2020 3:40 PM 01/11/20 1540 Interpreting Physician: Ludwin Rojas MD Dictated Date/Time: 01/11/20 154 cc: Cheri Noland; None,PCP) 2 XRAY Study: Abdomen Impression: See EMR Report ( Signed EXAM: ABDOMEN FLAT/UPRIGHT HISTORY: n/v/abd pain TECHNIQUE: Two views COMPARISON: None. FINDINGS: No free air beneath the diaphragm. No organomegaly. Prominent stool throughout the colon. No bowel obstruction. Calcifications are sutures in the mid left abdomen. There are pelvic phleboliths. IMPRESSION: Severe constipation Electronically signed by Ludwin Rojas 01/11/2020 3:42 PM 01/11/20 1542 Interpreting Physician: Ludwin Rojas MD Dictated Date/Time: 01/11/20 1540 cc: Cheri Noland; None,PCP) - CONSULTS/PCP/HOSPITALIST Notification #1 *Consult/PCP/Hospitalist*: Dr. Fernandez Time Discussed: 14:21 Reason/Comments: Dr. Cyr consulted with Dr. Fernandez about patient. Consult Disposition: Will see in ED, Admit Departure - Departure Date of Disposition Decision: 01/11/20 Time of Disposition Decision: 14:22 DIAGNOSIS: Thrombocytopenia, Anorexia, Dehydration, Weight loss Disposition: ADMITTED INPATIENT 09 Certified Medical Emergency: Emergent Condition: Good - Critical Care Note This patient required my direct & personal management of CC.: No Attestation - Physician/ TONJA Attestation Patient care was provided by Advanced Practice Provider:: No The physician spent face to face time with patient:: Yes Advanced Practice Provider documentation review:: Supervising physician onsite and consulted in the evaluation and care of this patient. The physician did have a face to face encounter with the patient. This chart was documented by the indicated scribe, (Lissa Kruger Scribe) and accurately reflects the services I performed and decisions made by , Jo Cyr MD, as attested by the provider's signature.
[2020-01-12] MEDS: NICODERM PATCH TD SCH (09:51)
[2020-01-12] MEDS ORDERED: GAMUNEX-C 10% IV STA (11:25)
[2020-01-12 12:24] LABS: FERRITIN 1447 ng/mL (30-400)
[2020-01-12] MEDS: GAMUNEX C IV SCH (13:40)
[2020-01-12] MEDS: DILUENT IV SCH (13:40)
--- NOTE | 2020-01-12 17:26 | HEMO/ONC CONSULTATION ---
DATE: 01/12/2020 REASON FOR CONSULTATION: He is a known patient of ours for the treatment of metastatic pancreatic adenocarcinoma. HISTORY OF PRESENT ILLNESS: Mr. Chapman is a 69-year-old male with a history of pancreatic adenocarcinoma with liver metastasis. The patient is being treated in her office with 5-FU and Onivyde, and most recently we sent him for SIR-Spheres (liver radiation) procedure with Dr. Cristo Hope. The patient had his first procedure on 10/22/2019. This made the patient feel very bad for approximately 2 weeks and then he improved. The patient chose to hold chemotherapy while he is going through this radiation because of how bad it made him feel. The patient had his second procedure on 12/28/2019. The patient's came into clinic to tell us that since then, he has not eaten. He has been throwing up. He has got a terrible productive cough. He has gotten so weak, he is having difficulty taking himself to the bathroom and even getting up and down. She was instructed to call an ambulance and bring the patient to the hospital. On arrival to the ER, the patient was noted to have a 20 pound weight loss. He was covered in a significant amount of bruises that he states he is not even sure how he got them. He complains of constipation, shortness of breath, weakness, vomiting, dizziness. His lab evaluation revealed a platelet count of 3000. The patient was admitted for further evaluation and treatment. The patient's last treatment with chemotherapy was on 10/19/2019. He was last seen in our office on 12/08/2019, with a platelet count of a 138,000. PAST MEDICAL HISTORY: 1. Pancreatic cancer with liver metastasis, status post Whipple. 2. Chronic nausea. 3. Anxiety. 4. Chronic pain syndrome. 5. COPD. SURGICAL HISTORY: 1. Port placement. 2. Bilateral knee surgery. 3. Back surgery. 4. Left shoulder surgery. 5. Pancreatic duodenectomy and wedge resection of the liver lesion on 02/18/2018. 6. SIR-Spheres on 12/23/2018 and 12/28/2019. SOCIAL HISTORY: The patient smoked 2 packs a day since the age of 19. Denies alcohol or illicit drug use. ALLERGIES: No known drug allergies. HOME MEDICATIONS: 1. Trazodone. 2. Moxifloxacin. 3. [place]. 4. Phenergan. 5. Potassium. 6. Protonix. 7. Reglan. 8. Xanax. PHYSICAL EXAMINATION: Vital Signs: Temperature 97.7 degrees, pulse rate 95, respiratory rate 20, blood pressure 139/82, O2 saturation 94% on room air. He denies any pain. General: This is an elderly, chronically ill-appearing gentleman, does not appear to feel well. HEENT: Sclerae anicteric. PERRLA. Oral mucosa is very dry. Cardiovascular: Normal S1, S2. Tachycardic rate and rhythm. No murmurs noted. Respiratory: Lung sounds are clear to auscultation, although seems somewhat diminished at the bases. Abdomen: Soft, tender to palpation in the upper quadrants. Bowel sounds are present but hypoactive. Extremities: No lower extremity edema noted. Neurological: Alert and oriented x3. No focal motor deficits noted. Skin: Bilateral upper extremities have numerous ecchymoses. LABORATORY DATA: WBC is 4.65, hemoglobin 13.5, hematocrit 39.0, platelet count 6000, reticulocyte count 1.88, fibrinogen 337. D-dimer 14.53. PT 16.7, PTT 43, INR 1.28. Iron 95, iron percent saturation 62, ferritin 1447, total bilirubin 1.29, AST 54, ALT 17, alkaline phosphatase 295, LDH 676. RADIOLOGY: Abdominal x-ray shows severe constipation. Chest x-ray shows no pneumonia. ASSESSMENT: 1. Pancreatic cancer with metastasis to the liver. The patient has had a decrease in performance status since being referred for SIR-Spheres Y-[address] Hope. He had his second procedure done approximately 2 weeks ago. His states he has not eaten and gotten weaker and weaker. Chemotherapy is currently on hold. We will continue to monitor. 2. Nausea, vomiting, and weight loss. Keep the patient with antiemetics around the clock and agree with Clinimix. Provide protein shakes or LiquiCell as he will tolerate. 3. Constipation. Provide the patient with stool softeners or MiraLAX. 4. Severe thrombocytopenia. 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 The patient was given 1 dose of platelets which were consumed by the next morning. The plan is to provide him with 1 dose of IVIG today. Give him 1 unit of platelets afterwards and draw a CBC 1 hour after platelets. Depending on that number, we may or may not determine to add another unit of platelets. Call the physician with a platelet count after the first unit of platelets. The patient will receive a second dose of IVIG tomorrow. 5. Anxiety. Continue the patient's Xanax. 6. Chronic pain syndrome. Continue his pain medication. 7. Dehydration. Continue his IV fluids and IV nutrition as you are doing. 8. Tobacco abuse. Provide the patient with a nicotine patch if requested. He has been given education and encouragement several times and he has no interest in quitting at this time. Dictated by AKOSUA Ruffin for Liam Bass MD As above. Severe thrombocytopenia. Not responding to multiple platelet transfusion. Most likely immune platelet destruction. Poor candidate for steroids. Start IVIG. Will follow with you. Liam Bass MD cc: Liam Bass MD MTDD
--- NOTE | 2020-01-12 17:33 | PROGRESS NOTE ---
DATE: 01/12/2020 PRIMARY CARE PHYSICIAN: He has no primary care physician. He is followed by Dr. Liam Bass. CHIEF COMPLAINT: He came in with weakness, dizziness, bruises, shortness of breath, exhaustion for least 2 weeks, 20-pound weight loss in the last month, presented on 01/11/2020. PAST MEDICAL HISTORY: 1. Again, pancreatic cancer with liver metastasis for a year and a half, status post Whipple. 2. Chronic nausea. 3. Anxiety. 4. Chronic pain syndrome. 5. Most likely chronic obstructive pulmonary disease. He is a heavy smoker. SURGICAL HISTORY: 1. Port placement. 2. Whipple's procedure. 3. Bilateral knee surgery. 4. Back surgery. 5. Left shoulder surgery. HISTORY OF PRESENT ILLNESS: He is a 59-year-old with past medical history of pancreatic cancer with metastasis for at least the last year and a half. Also history of chronic nausea, anxiety, chronic pain syndrome. He smokes 2 packs of cigarettes a day. For the last 2 weeks, he has had weakness and shortness of breath with activity, nausea, vomiting, dizziness, bruises not sure how they got there and complains of constipation. Last bowel movement was about a week before he came in, progressively got worse. He came to seek medical attention. Also complains of 20 pounds weight loss in the last month. Platelet count here is 3 and was transfused platelets and sent to [facility] for evaluation and Dr. Bass is following. HOME MEDICATIONS: Trazodone 25 mg at night, moxifloxacin 400 mg daily, [place] 1 q.4 hours p.r.n., Phenergan 25 mg q.6 hours p.r.n., potassium 20 mEq p.o. twice a day, Protonix 40 mg a day, Reglan 10 mg 4 times a day, and Xanax 0.4 mg t.i.d. p.r.n., ADMISSION DIAGNOSES: 1. Pancreatic cancer, metastasis to the liver, now status post Whipple's procedure. He has had radiation 2 weeks ago, status post been having symptoms of dizziness, nausea, vomiting, bruising, constipation, weight loss. 2. Nausea, vomiting, weight loss, constipation. He is getting antiemetics and stool softeners. 3. Thrombocytopenia with bruising and no sign of active bleeding. 4. Anxiety. He gets Xanax p.r.n. 5. Chronic pain syndrome. He is on [place]. 6. Dehydration. Getting IV fluids. 7. Weight loss. Encouraging p.o. intake and states that he feels a little better today. PHYSICAL EXAMINATION: Vital Signs: Temperature 98.2 degrees, pulse 101, respirations 19, blood pressure 144/87. HEENT: Pupils are equal and round. Lungs: Clear in all lung zaldivar. Cardiovascular: Regular rhythm and rate without murmur or S3. Abdomen: Soft, nontender, nondistended. Blood pressure 144/87. ASSESSMENT AND PLAN: History of pancreatic cancer with metastasis followed by Dr. Bass. He came in with a platelet count of 3000. We gave him a platelet transfusion. Current orders: He is getting IV immunoglobulin 10% 20 g. He is getting trazodone 25 mg at bedtime. He is on Xanax 0.5 mg p.o. t.i.d., Pulmicort 0.5 mg b.i.d. He is on Clinimix I believe at 75 mL an hour. He had some immunoglobulin I believe another 40 g total. Getting Reglan for nausea. Nicotine patch. MiraLAX 17 g p.o. b.i.d., sennoside docusate 1 twice a day and he got some methylnaltrexone own 8 mg yesterday, 1 dose. LABORATORY DATA: Today, white count 4650, hematocrit is 39. Platelet count was 6000. Sodium 139, potassium 4.7, chloride 102. BUN 13, creatinine 0.5. cc: Mauricio Mendosa MD
[2020-01-12 21:17] LABS: BASO# 0.01 X1000 (0.0-0.2); BASO% 0.2 % (0.0-0.8); EOS# 0.07 X1000 (0.0-0.7); EOS% 1.3 % (0.0-10.0); HEMATOCRIT 37.5 % (42.0-52.0); HEMOGLOBIN 12.4 g/dL (14.0-18.0); IMM GRAN# 0.09 X1000 (0.0-0.04); IMM GRAN% 1.7 % (0.0-0.5); LYMPH% 5.7 % (20.5-51.1); MCHC 33.1 g/dL (33-37); MCV 102.7 FL (81-99); MONO# 0.55 X1000 (0.11-0.59); MONO% 10.4 % (1.7-9.3); NEUT# 4.28 X1000 (1.4-6.5); NEUT% 80.7 % (42.2-75.2); RBC 3.65 XMIL (4.7-6.1); RDW 13.3 % (11.5-14.5)
[2020-01-12 21:20] LABS: PLT 9 X1000 (130-400)
[2020-01-12] MEDS: DESYREL PO SCH (21:34)
[2020-01-12 21:38] LABS: BANDS 1 % (0-1); EOS 1 % (1-10); LYMPHS 4 % (21-51); MONO 8 % (1-9); SEGS 85 % (42-75)
[2020-01-12 21:47] LABS: BASO# 0.02 X1000 (0.0-0.2); BASO% 0.4 % (0.0-0.8); EOS# 0.04 X1000 (0.0-0.7); EOS% 0.8 % (0.0-10.0); HEMATOCRIT 36.2 % (42.0-52.0); IMM GRAN# 0.07 X1000 (0.0-0.04); IMM GRAN% 1.4 % (0.0-0.5); LYMPH# 0.24 X1000 (1.2-3.4); MCH 34.1 PG (27-31); MCHC 33.1 g/dL (33-37); MCV 102.8 FL (81-99); MONO# 0.47 X1000 (0.11-0.59); MONO% 9.7 % (1.7-9.3); MPV 11.5 FL (7.4-10.4); NEUT# 3.99 X1000 (1.4-6.5); NEUT% 82.7 % (42.2-75.2); RBC 3.52 XMIL (4.7-6.1); RDW 13.4 % (11.5-14.5); WBC 4.83 X1000 (4.8-10.8)
[2020-01-12 21:48] LABS: PLT 10 X1000 (130-400)
[2020-01-12] MEDS: NS 1,000 ML IV SCH (22:27)
[2020-01-12] MEDS: LIPOSYN 20% 250 ML IV SCH (22:27)
[2020-01-13] MEDS: DUONEB (A & A) INH SCH ×4 (03:59→21:03)
[2020-01-13] MEDS: REGLAN PO SCH ×4 (06:38→21:14)
[2020-01-13] MEDS: PROTONIX PO SCH (06:38)
[2020-01-13] MEDS: NS 1,000 ML IV SCH (06:52)
[2020-01-13] MEDS: MIRALAX PO SCH ×2 (08:08→21:14)
[2020-01-13] MEDS: NICODERM PATCH TD SCH (08:08)
[2020-01-13] MEDS: PERICOLACE PO SCH ×2 (08:08→21:14)
[2020-01-13] MEDS: DILUENT IV SCH ×2 (10:04→12:29)
[2020-01-13] MEDS: GAMUNEX C IV SCH ×2 (10:04→12:29)
[2020-01-13 10:43] LABS: BASO# 0.01 X1000 (0.0-0.2); BASO% 0.2 % (0.0-0.8); EOS# 0.01 X1000 (0.0-0.7); EOS% 0.2 % (0.0-10.0); HEMATOCRIT 36.1 % (42.0-52.0); IMM GRAN# 0.07 X1000 (0.0-0.04); IMM GRAN% 1.6 % (0.0-0.5); LYMPH# 0.25 X1000 (1.2-3.4); LYMPH% 5.8 % (20.5-51.1); MCH 34.2 PG (27-31); MCHC 33.2 g/dL (33-37); MCV 102.8 FL (81-99); MONO# 0.43 X1000 (0.11-0.59); MPV 8.2 FL (7.4-10.4); NEUT# 3.54 X1000 (1.4-6.5); NEUT% 82.2 % (42.2-75.2); PLT 6 X1000 (130-400); RBC 3.51 XMIL (4.7-6.1); RDW 13.5 % (11.5-14.5); WBC 4.31 X1000 (4.8-10.8)
[2020-01-13] MEDS: PULMICORT INH SCH ×2 (11:00→21:00)
[2020-01-13 11:01] LABS: BANDS 6 % (0-1); LYMPHS 2 % (21-51); MONO 10 % (1-9); SEGS 82 % (42-75)
[2020-01-13 11:22] LABS: AGAP 9; ALB/GLOB RATIO 0.8; ALBUMIN 2.9 g/dL (3.5-5.0); ALKALINE PHOSPHATASE 276 U/L (32-122); BUN 14 mg/dL (8-22); CALCIUM 8.2 mg/dL (8.8-10.2); CHLORIDE 102 mmol/L (98-107); COSMO 277; CREATININE 0.5 mg/dL (0.7-1.2); ESTIMATED GFR > 60; GLUCOSE 206 mg/dL (70-104); GOT 61 U/L (10-34); GPT 18 U/L (10-44); MAGNESIUM 1.9 mg/dL (1.5-2.7); POTASSIUM 4.8 mmol/L (3.5-5.1); SODIUM 135 mmol/L (136-145); TCO2 24 mmol/L (25-35); TOTAL BILIRUBIN 1.47 mg/dL (0.20-1.00); TOTAL PROTEIN 6.4 g/dL (6.3-8.3)
--- NOTE | 2020-01-13 13:29 | HEMO/ONC PROGRESS NOTE ---
DATE: 01/13/2020 SUBJECTIVE: Mr. Chapman is sitting up, awake and alert in his bed this morning. He has been brought a breakfast tray but he states he is not very interested in it. He states he will try to eat some of it. He claims that he does feel better than he did yesterday. However, nursing staff comes in to tell me that he got confused last night and they had placed him in the chair for a little while. He attempted to get out of the chair, falling over and putting a hole in the sheet rock of the wall. The patient was placed back in bed and continued to be rather confused for most of the evening. The patient is completely oriented this morning, does not recall being confused. He does recall falling and putting a hole in the wall. The patient denies any pain. He did have a skin tear due to his fall. He denies any complaints. OBJECTIVE: Vital Signs: Temperature 97.9 degrees, pulse rate 93, respiratory rate 18, blood pressure 140/88, O2 saturation 91% on nasal cannula at 2 L. He is in 0/10 pain. Physical Examination: General: The patient appears cachectic but in no acute distress. Cardiovascular: Normal S1, S2. Heart rate and rhythm regular. Respiratory: Lungs are clear to auscultation. Abdomen: Soft, nontender, nondistended. Extremities: No lower extremity edema noted. Upper extremities have extensive bruising and a skin tear to the left elbow. Neurological: Alert and oriented at the time of the examination. No focal motor deficits noted. Laboratory: WBCs 4.31, hemoglobin 12, hematocrit 36, platelet count 6000. Sodium 135, potassium 4.8. Total bilirubin 1.47, alkaline phosphatase 276, albumin 2.9. ASSESSMENT AND PLAN: 1. Idiopathic thrombocytopenic purpura. Yesterday, we ordered an IVIG infusion to be followed by 1 unit of platelets. After the unit of platelets, we requested a CBC to be drawn one hour after. The patient's platelets were 10,000, confirming immune platelet destruction. He is a poor candidate for steroids. He will have his second dose of IVIG today, followed by another unit of platelets. We are obtaining Promacta for him. We are continuing to monitor closely. 2. Pancreatic cancer with metastasis to the liver. The patient has been declining over the past several weeks since receiving SIR-Spheres Y-90 procedure. In the last 2 weeks, he has become weaker. We are currently holding therapy at this time. We will continue to monitor. 3. Nausea, vomiting, and weight loss. Continue to provide the patient with antiemetics as requested. Provide him with protein shakes, LiquiCell, or snacks as he requests. 4. Constipation. Continue to provide the patient with stool softeners and MiraLAX. 5. Dehydration. Continue repletion as you are doing. 6. Anxiety. Continue his Xanax as necessary. 7. Chronic pain syndrome. He is on [place]. Continue medical management. Dictated by AKOSUA Ruffin for Liam Bass MD ITP s/p 1 dose of IVIG. Will get 2nd dose today. Will also get him started on Promacta sample, if we have in the clinic. So far no response to IVIG. Discussed DNR. He wants to discuss with family and make decision. MD Liam Casas MD cc: Liam Bass MD [facility]
[2020-01-13] MEDS: XANAX PO PRN (15:36)
[2020-01-13] MEDS: TYLENOL PO PRN (15:37)
[2020-01-13] MEDS: PATIENT'S OWN MED - CHEMO PO SCH (15:52)
[2020-01-13] MEDS: CLINIMIX E 4.25%-5% SOLUTION 1,000 ML IV SCH (17:16)
--- NOTE | 2020-01-13 17:38 | PROGRESS NOTE ---
DATE: 01/13/2020 SUBJECTIVE: Mr. Chapman's platelet count is still low. Otherwise, he feels about the same. He has not had any active bleeding. OBJECTIVE: Temperature 98.1 degrees, pulse 97, respirations 17, and blood pressure 155/96. Pupils are equal and round. Lungs are clear in all lung zaldivar. Cardiovascular: Regular rhythm and rate without murmur or S3. ASSESSMENT AND PLAN: 1. Idiopathic thrombocytopenic purpura. He is status post splenectomy. They have given IVIG infusions, but so far has not done a lot. We will give another unit of platelets. Dr. Bass is following. The patient's platelets were 10,000 confirming immune platelet destruction. He is a poor candidate for steroids so will get another dose of IVIG today, and followed by another unit platelets. Trying to obtain the okay to use Promacta. 2. Pancreatic cancer with metastasis to the liver. The patient has been declining in the past several weeks, and since receiving his SIR spheres Y 90 procedure in the last 2 weeks, he has become weaker. 3. Nausea, vomiting, and weight loss. Continue antiemetics. He is getting some protein shakes and snacks, and encouraging p.o. intake. 4. Constipation. He is on stool softeners and MiraLAX. 5. Dehydration. 6. Anxiety. Continue Xanax as necessary. 7. Chronic pain syndrome. He is on [place]. cc: Mauricio Mendosa MD
[2020-01-13] MEDS: DESYREL PO SCH (21:14)
[2020-01-14] MEDS: DUONEB (A & A) INH SCH ×4 (03:05→21:00)
[2020-01-14] MEDS: XANAX PO PRN (03:57)
[2020-01-14] MEDS: PROTONIX PO SCH (06:11)
[2020-01-14] MEDS: REGLAN PO SCH ×4 (06:11→20:07)
[2020-01-14 08:10] LABS: BASO# 0.02 X1000 (0.0-0.2); BASO% 0.4 % (0.0-0.8); EOS# 0.02 X1000 (0.0-0.7); EOS% 0.4 % (0.0-10.0); HEMATOCRIT 36.7 % (42.0-52.0); HEMOGLOBIN 12.3 g/dL (14.0-18.0); IMM GRAN# 0.09 X1000 (0.0-0.04); LYMPH# 0.36 X1000 (1.2-3.4); MCH 34.1 PG (27-31); MCHC 33.5 g/dL (33-37); MCV 101.7 FL (81-99); MONO# 0.43 X1000 (0.11-0.59); MONO% 9.5 % (1.7-9.3); NEUT% 79.7 % (42.2-75.2); PLT 9 X1000 (130-400); RBC 3.61 XMIL (4.7-6.1); RDW 13.8 % (11.5-14.5); WBC 4.52 X1000 (4.8-10.8)
[2020-01-14 08:18] LABS: AGAP 9; ALB/GLOB RATIO 0.6; ALBUMIN 2.9 g/dL (3.5-5.0); ALKALINE PHOSPHATASE 330 U/L (32-122); BUN 16 mg/dL (8-22); CALCIUM 8.6 mg/dL (8.8-10.2); CHLORIDE 103 mmol/L (98-107); COSMO 276; CREATININE 0.6 mg/dL (0.7-1.2); ESTIMATED GFR > 60; GLUCOSE 181 mg/dL (70-104); GOT 85 U/L (10-34); GPT 23 U/L (10-44); MAGNESIUM 1.8 mg/dL (1.5-2.7); POTASSIUM 4.4 mmol/L (3.5-5.1); SODIUM 135 mmol/L (136-145); TCO2 23 mmol/L (25-35); TOTAL BILIRUBIN 2.05 mg/dL (0.20-1.00); TOTAL PROTEIN 7.4 g/dL (6.3-8.3)
[2020-01-14 08:49] LABS: LYMPHS 10 % (21-51); MONO 7 % (1-9); SEGS 83 % (42-75)
[2020-01-14] MEDS: NICODERM PATCH TD SCH (09:33)
[2020-01-14] MEDS: MIRALAX PO SCH ×2 (09:33→20:07)
[2020-01-14] MEDS: PERICOLACE PO SCH ×2 (09:33→20:07)
[2020-01-14] MEDS: PATIENT'S OWN MED - CHEMO PO SCH (09:56)
[2020-01-14] MEDS: PULMICORT INH SCH ×2 (11:31→21:00)
--- NOTE | 2020-01-14 13:09 | HEMO/ONC PROGRESS NOTE ---
DATE: 01/14/2020 SUBJECTIVE: Mr. Chapman appears more alert and awake this morning. He is sitting up in bed, eating his breakfast. He states he has a little bit of an appetite this morning. He denies any more falling. He denies having any more moments of confusion. The nurse's notes do not report any episodes of confusion last night. He denies any complaints. He has no pain. OBJECTIVE: Vital Signs: Temperature 98.1 degrees, pulse rate 101, respiratory rate 22, blood pressure 152/86, O2 saturation 95% on room air. He is in 0/10 pain. General: This is a chronically ill, elderly-appearing male, who also appears cachectic. Cardiovascular: Normal S1, S2. Heart rate and rhythm tachycardic. Respiratory: Lung sounds are clear to auscultation. Normal respiratory effort. Abdomen: Soft, nontender, nondistended. Extremities: No lower extremity edema noted. Upper extremities have multiple bruises and a skin tear to the left elbow. Neurological: Alert and oriented x3. No focal motor deficits. LABORATORY DATA: WBCs 4.52, hemoglobin 12.3, hematocrit 36.7, platelet count 9000. Sodium 135, calcium 8.6, magnesium 1.8, total bilirubin 2.05, alkaline phosphatase 330, albumin 2.9. ASSESSMENT AND PLAN: 1. Idiopathic thrombocytopenic purpura. The patient is status post 2 doses of intravenous immunoglobulin. We expected to have seen a response by now. The patient was started on Promacta yesterday. The patient denies any bleeding at this time. We are continuing to monitor closely. Transfuse as needed. 2. Pancreatic cancer with metastasis to the liver. The patient has been declining over the past several weeks since receiving [facility]'s Y-[address] procedure[address] Bass discussed DNR with the patient. 3. Nausea, vomiting, and weight loss. Continue to provide the patient with antiemetics, provide him with protein shakes or snacks as he requests, and will consider adding Remeron to his medications. 4. Constipation. The patient was relieved of his initial constipation. However, he has not been going every day. He needs to continue with either a daily stool softener or MiraLAX. 5. Anxiety. Continue his Xanax as necessary. 6. Chronic pain syndrome. Continue [place] per medical management. Dictated by AKOSUA Ruffin for Liam Bass MD cc: Liam Bass MD [facility]
--- NOTE | 2020-01-14 15:51 | PROGRESS NOTE ---
DATE: 01/14/2020 SUBJECTIVE: Mr. Chapman says he is feeling a little better. His is at the bedside. She is concerned about his delirium and confusion which she reports may be a little better today. He has not had any new areas of bruising. She did report that his urine seems to be pretty dark-colored. OBJECTIVE: Vital signs: Temperature is 98.4 degrees, pulse 107, respirations 20, blood pressure 150/86. HEENT: Pupils are equal and round. Neck: No distended neck veins. Lungs: Clear in all lung zaldivar. Cardiovascular: Regular rhythm and rate without murmur or S3. URINE OUTPUT: 388 mL. ASSESSMENT AND PLAN: 1. Idiopathic or immuno thrombocytopenic purpura status post 2 doses of intravenous immunoglobulin. Expected response by now. We started him on Promacta, first dose was yesterday and hope to see improvement by tomorrow. Platelet count was 9000 today so denies any bleeding at this time. Continue to monitor. 2. Pancreatic cancer with metastasis to the liver. The patient has been declining over the last several weeks. He received an SIR-Spheres Y-[address] Bass has discussed Do Not Resuscitate status. Continue to hold his therapy and monitor his progression. 3. Nausea, vomiting, weight loss. He is getting antiemetics. Encourage p.o. intake. Considering entering [facility] to his medications. 4. Constipation. He was relieved of his initial constipation. He is on MiraLAX. 5. Anxiety. He has Xanax p.r.n. 6. Chronic pain syndrome. Aware. REVIEW OF HIS ORDERS: He is getting Desyrel 25 mg at bedtime, Xanax 0.5 mg t.i.d. p.r.n., Pulmicort 0.5 mg b.i.d., Reglan 10 mg q.a.c. and HS, nicotine patch 21 mg daily, Protonix 40 mg daily, and he is on sennosides and docusate combination 1 tablet b.i.d. cc: Mauricio Mendosa MD
[2020-01-14] MEDS: DESYREL PO SCH (20:07)
[2020-01-15] MEDS: DUONEB (A & A) INH SCH ×4 (03:00→22:49)
[2020-01-15] MEDS: PROTONIX PO SCH (06:51)
[2020-01-15] MEDS: REGLAN PO SCH ×4 (06:51→21:04)
[2020-01-15 08:10] LABS: BASO# 0.01 X1000 (0.0-0.2); BASO% 0.2 % (0.0-0.8); EOS# 0.02 X1000 (0.0-0.7); EOS% 0.5 % (0.0-10.0); HEMATOCRIT 34.7 % (42.0-52.0); HEMOGLOBIN 11.8 g/dL (14.0-18.0); IMM GRAN# 0.07 X1000 (0.0-0.04); IMM GRAN% 1.7 % (0.0-0.5); LYMPH# 0.25 X1000 (1.2-3.4); LYMPH% 5.9 % (20.5-51.1); MCH 34.1 PG (27-31); MCV 100.3 FL (81-99); MONO# 0.47 X1000 (0.11-0.59); MONO% 11.1 % (1.7-9.3); NEUT% 80.6 % (42.2-75.2); RBC 3.46 XMIL (4.7-6.1); RDW 14.1 % (11.5-14.5); WBC 4.22 X1000 (4.8-10.8)
[2020-01-15 08:11] LABS: PLT < 6 X1000 (130-400)
[2020-01-15 08:30] LABS: AGAP 13; ALB/GLOB RATIO 0.5; ALBUMIN 2.5 g/dL (3.5-5.0); ALKALINE PHOSPHATASE 473 U/L (32-122); BUN 19 mg/dL (8-22); CALCIUM 8.1 mg/dL (8.8-10.2); CHLORIDE 104 mmol/L (98-107); COSMO 285; CREATININE 0.5 mg/dL (0.7-1.2); ESTIMATED GFR > 60; GLUCOSE 219 mg/dL (70-104); GOT 106 U/L (10-34); GPT 27 U/L (10-44); POTASSIUM 4.6 mmol/L (3.5-5.1); SODIUM 138 mmol/L (136-145); TCO2 21 mmol/L (25-35); TOTAL BILIRUBIN 2.76 mg/dL (0.20-1.00); TOTAL PROTEIN 7.1 g/dL (6.3-8.3)
[2020-01-15] MEDS: PATIENT'S OWN MED - CHEMO PO SCH (08:41)
[2020-01-15] MEDS: MIRALAX PO SCH ×2 (08:41→21:04)
[2020-01-15] MEDS: NICODERM PATCH TD SCH (08:41)
[2020-01-15] MEDS: PERICOLACE PO SCH ×2 (08:41→21:04)
[2020-01-15] MEDS: PULMICORT INH SCH ×2 (09:11→22:49)
[2020-01-15] MEDS ORDERED: BENADRYL IV ONE (12:50)
[2020-01-15] MEDS ORDERED: TYLENOL PO ONE (12:50)
[2020-01-15] MEDS ORDERED: NS 500 ML IV ONE (12:50)
--- NOTE | 2020-01-15 13:13 | HEMO/ONC PROGRESS NOTE ---
DATE: 01/15/2020 SUBJECTIVE: I found Mr. Chapman in his bed this morning with his nasal cannula on, his head laid back, eyes closed, and he was humming. The patient did not respond when I first said his name, so I am not sure that he was not asleep. He did awake easily after I touched him. He seemed slightly confused this morning, but he is answering my questions appropriately. The patient wants to know when he can go home. I discussed further the significance of his condition, that we will need to continue to monitor him in the hospital. The patient has had no further bleeding and no further falls. OBJECTIVE: Vital Signs: Temperature 98.9 degrees, pulse rate 101, respiratory rate 14, blood pressure 144/90, O2 saturation 94% on room air, 0/10 pain. General: Elderly male in no acute distress. The patient appears ill. Cardiovascular: Heart rate and rhythm tachycardic. Respiratory: Lung sounds are clear to auscultation. Normal respiratory effort. Abdomen: Soft, nontender, nondistended. Extremities: No lower extremity edema noted. Upper extremities have multiple bruises and tender left elbow. LABORATORY DATA: WBCs 4.22, hemoglobin 11.8, hematocrit 34.7, platelets less than 6000. Bilirubin 2.76, alkaline phosphatase 473, albumin 2.5. ASSESSMENT AND PLAN: 1. Idiopathic thrombocytopenic purpura. The patient is status 2 doses of IVIG, and he was started on Promacta on Saturday. We have not seen a response in his platelets yet. He denies any bleeding at this time. We are continuing to monitor. Continue to transfuse as needed. We are ordering a platelet transfusion for today. 2. Pancreatic cancer with metastasis to the liver. The patient has slowly been declining over the past several weeks. Dr. Bass will discuss further therapy with the patient and his . 3. Nausea, vomiting, and weight loss. The patient seems to have resolved his nausea and vomiting. He is eating fairly well while he is in the hospital. Continue to provide him with protein shakes as requested. 4. Constipation. The patient is on daily MiraLAX. 5. Anxiety. Continue Xanax p.r.n. 6. Chronic pain syndrome. Continue pain management as necessary. Dictated by AKOSUA Ruffin for Liam Bass MD Refractory ITP. No response to transfusions and IVIG. So far no response to Promacta. Will give it few more days. Discussed DNR and is agreeable. Patient has confusion and may not be able to make that decision. Will get palliative care to discuss that further. Liam Bass MD cc: Liam Bass MD [facility]
--- NOTE | 2020-01-15 13:20 | PROGRESS NOTE ---
DATE: 01/15/2020 SUBJECTIVE: Mr. Chapman is sitting, eating lunch. He is comfortable, no complaints, but his platelet count was still low. OBJECTIVE: Vital signs: He remains afebrile, temperature 98.9 degrees, pulse 100, respirations 14, blood pressure 144/90. HEENT: Pupils are equal and round. Lungs: Are clear in all zaldivar. Cardiovascular: Regular rhythm rate without murmur or S3. URINE OUTPUT: 1400 mL. ASSESSMENT AND PLAN: 1. Diabetic or idiopathic thrombocytopenic purpura, status post 2 doses of intravenous immunoglobulin. He has been on started on Promacta and he is not bleeding. No new signs of ecchymosis but continues to have low platelet count. 2. Pancreatic cancer with metastasis to the liver. He has been declining over the past several weeks since receiving his Sir-Spheres Y-[address] Bass discussed DNR with the patient and we will make him a DNR. 3. Nausea, vomiting, weight loss. He is eating and so encourage p.o. intake. 4. Constipation, which is resolved. 5. Anxiety. He is on Xanax. 6. Chronic pain syndrome. A difficult position. No response to IV immunoglobulin and no response to the Promacta. May have to consider splenectomy, but I do not think he would be a surgical candidate unless we get his platelet counts up better. Platelet count today is less than 6000. cc: Mauricio Mendosa MD
[2020-01-15] MEDS: DESYREL PO SCH (21:03)
[2020-01-16] MEDS: DUONEB (A & A) INH SCH ×4 (03:46→22:15)
[2020-01-16] MEDS: REGLAN PO SCH ×4 (06:32→20:54)
[2020-01-16] MEDS: PROTONIX PO SCH (06:32)
[2020-01-16] MEDS: PULMICORT INH SCH ×2 (09:27→22:15)
[2020-01-16] MEDS: PERICOLACE PO SCH ×2 (09:41→20:54)
[2020-01-16] MEDS: NICODERM PATCH TD SCH (09:41)
[2020-01-16] MEDS: MIRALAX PO SCH ×2 (09:43→20:54)
[2020-01-16] MEDS: PATIENT'S OWN MED - CHEMO PO SCH (09:51)
[2020-01-16 10:07] LABS: BASO# 0.02 X1000 (0.0-0.2); BASO% 0.5 % (0.0-0.8); EOS# 0.02 X1000 (0.0-0.7); EOS% 0.5 % (0.0-10.0); HEMATOCRIT 33.6 % (42.0-52.0); HEMOGLOBIN 11.4 g/dL (14.0-18.0); IMM GRAN# 0.07 X1000 (0.0-0.04); IMM GRAN% 1.7 % (0.0-0.5); LYMPH# 0.41 X1000 (1.2-3.4); MCH 34.4 PG (27-31); MCHC 33.9 g/dL (33-37); MCV 101.5 FL (81-99); MONO# 0.42 X1000 (0.11-0.59); MONO% 10.2 % (1.7-9.3); MPV 9.9 FL (7.4-10.4); NEUT# 3.17 X1000 (1.4-6.5); NEUT% 77.1 % (42.2-75.2); PLT 6 X1000 (130-400); RBC 3.31 XMIL (4.7-6.1); RDW 14.4 % (11.5-14.5); WBC 4.11 X1000 (4.8-10.8)
[2020-01-16 10:11] LABS: AGAP 13; ALB/GLOB RATIO 0.7; ALBUMIN 2.8 g/dL (3.5-5.0); ALKALINE PHOSPHATASE 452 U/L (32-122); BUN 32 mg/dL (8-22); CALCIUM 8.2 mg/dL (8.8-10.2); CHLORIDE 101 mmol/L (98-107); COSMO 290; CREATININE 0.6 mg/dL (0.7-1.2); ESTIMATED GFR > 60; GLUCOSE 240 mg/dL (70-104); GOT 94 U/L (10-34); GPT 31 U/L (10-44); MAGNESIUM 2.2 mg/dL (1.5-2.7); POTASSIUM 4.2 mmol/L (3.5-5.1); SODIUM 138 mmol/L (136-145); TCO2 24 mmol/L (25-35); TOTAL BILIRUBIN 3.47 mg/dL (0.20-1.00); TOTAL PROTEIN 6.6 g/dL (6.3-8.3)
--- NOTE | 2020-01-16 11:28 | PROGRESS NOTE ---
DATE: 01/16/2020 SUBJECTIVE: Mr. Chapman feels good. His states he has had less confusion. He did eat a donut and he is eating some. No pain. Breathing comfortably. OBJECTIVE: Vital signs: Remains afebrile, temperature 97.7 degrees pulse 104, respirations 16, blood pressure 148/87. O2 saturations above 94%. HEENT: Pupils are equal and round. Lungs: Clear in all lung zaldivar. Cardiovascular: Regular rhythm and rate without murmur or S3. Abdomen: Soft. Skin: Warm and dry. ASSESSMENT AND PLAN: 1. Diabetes mellitus. Blood sugars look like they are well controlled. Blood sugars, last several 206, 181, 219, 240. 2. Idiopathic thrombocytopenic purpura. Platelet count was 6000. No new bleeding or bruising. We are continuing the Promacta. He has been given 2 doses of IV immunoglobulin. When discussing his , we do not believe he has had a splenectomy. 3. Nausea and vomiting is better. His oral intake is good. He is improving. 4. Constipation. Continue his MiraLAX. 5. Anxiety. He is on Xanax. 6. Chronic pain syndrome. REVIEW OF HIS ORDERS: I do not see any change at this point. LABORATORY DATA: His blood count this morning, white blood cell count 4110, hematocrit is 33, platelet count was 6000. Chemistry: Sodium 138, potassium 4.2, chloride 101, BUN 32, creatinine is 0.6. cc: Mauricio Mendosa MD
[2020-01-16] MEDS: DECADRON IV SCH (12:18)
[2020-01-16] MEDS: DESYREL PO SCH (20:53)
[2020-01-17] MEDS: DUONEB (A & A) INH SCH ×4 (04:06→23:30)
[2020-01-17] MEDS: PROTONIX PO SCH (06:40)
[2020-01-17] MEDS: REGLAN PO SCH ×5 (06:40→21:20)
[2020-01-17 07:22] LABS: AGAP 12; ALB/GLOB RATIO 0.6; ALBUMIN 2.5 g/dL (3.5-5.0); ALKALINE PHOSPHATASE 480 U/L (32-122); BUN 41 mg/dL (8-22); CALCIUM 8.4 mg/dL (8.8-10.2); CHLORIDE 104 mmol/L (98-107); COSMO 297; CREATININE 0.6 mg/dL (0.7-1.2); ESTIMATED GFR > 60; GLUCOSE 270 mg/dL (70-104); GOT 103 U/L (10-34); GPT 36 U/L (10-44); MAGNESIUM 2.6 mg/dL (1.5-2.7); POTASSIUM 4.2 mmol/L (3.5-5.1); SODIUM 139 mmol/L (136-145); TCO2 23 mmol/L (25-35); TOTAL BILIRUBIN 3.16 mg/dL (0.20-1.00); TOTAL PROTEIN 6.8 g/dL (6.3-8.3)
[2020-01-17 08:01] LABS: BASO# 0.02 X1000 (0.0-0.2); BASO% 0.4 % (0.0-0.8); EOS# 0.01 X1000 (0.0-0.7); EOS% 0.2 % (0.0-10.0); HEMATOCRIT 33.2 % (42.0-52.0); HEMOGLOBIN 11.3 g/dL (14.0-18.0); IMM GRAN# 0.08 X1000 (0.0-0.04); IMM GRAN% 1.6 % (0.0-0.5); LYMPH# 0.43 X1000 (1.2-3.4); LYMPH% 8.8 % (20.5-51.1); MCH 34.2 PG (27-31); MCV 100.6 FL (81-99); MONO# 0.38 X1000 (0.11-0.59); MONO% 7.7 % (1.7-9.3); NEUT# 3.99 X1000 (1.4-6.5); NEUT% 81.3 % (42.2-75.2); PLT < 6 X1000 (130-400); RDW 14.4 % (11.5-14.5); WBC 4.91 X1000 (4.8-10.8)
[2020-01-17 09:08] LABS: BANDS 10 % (0-1); LYMPHS 4 % (21-51); MONO 6 % (1-9); SEGS 80 % (42-75)
--- NOTE | 2020-01-17 09:08 | PROGRESS NOTE ---
DATE: 01/17/2020 SUBJECTIVE: Mr. Chapman is comfortable, had a pretty good night. I noted his platelet counts were less than 6. He has not had any new sign of bleeding or bruising. He is awake and alert, oriented to person, place, and situation. PHYSICAL EXAMINATION: Vital Signs: Temperature 97.5 degrees, pulse 94, respirations 20, blood pressure 148/89. HEENT: Pupils are equal and round. Lungs: Clear in all lung zaldivar. Cardiovascular: Regular rhythm and rate without murmur or S3. Abdomen: Soft. Skin: Warm and dry. ASSESSMENT AND PLAN: 1. Idiopathic thrombocytopenic purpura. Platelet count less than 6. No new bruising or bleeding. He is on Promacta. So far, no results. He has received 2 doses of intravenous immunoglobulin. 2. Diabetes mellitus type 2. Sugar is under reasonable control. He is eating. 3. Nausea and vomiting which he presented with is better. 4. Constipation, resolved. He is on MiraLAX. 5. Anxiety. He is on Xanax. 6. Chronic pain syndrome. 7. Pancreatic cancer with metastasis to the liver. The patient is withholding treatment while we are trying to get his platelet count up. cc: Mauricio Mendosa MD
[2020-01-17] MEDS: PERICOLACE PO SCH ×2 (09:44→21:15)
[2020-01-17] MEDS: NICODERM PATCH TD SCH (09:44)
[2020-01-17] MEDS: DECADRON IV SCH (09:44)
[2020-01-17] MEDS: MIRALAX PO SCH ×2 (09:46→21:15)
[2020-01-17] MEDS: XANAX PO PRN ×2 (10:21→15:26)
[2020-01-17] MEDS: PATIENT'S OWN MED - CHEMO PO SCH (10:21)
[2020-01-17] MEDS: PULMICORT INH SCH ×2 (10:32→23:30)
[2020-01-17] MEDS ORDERED: ATIVAN IV ONE (12:53)
[2020-01-17] MEDS: ATIVAN IV PRN ×2 (17:37→21:32)
[2020-01-17] MEDS: DESYREL PO SCH ×2 (21:15→21:20)
[2020-01-18] MEDS: ATIVAN IV PRN ×3 (02:23→13:27)
[2020-01-18] MEDS: DUONEB (A & A) INH SCH ×2 (03:30→09:52)
[2020-01-18] MEDS: REGLAN PO SCH ×2 (06:10→11:58)
[2020-01-18] MEDS: PROTONIX PO SCH (06:10)
[2020-01-18 08:08] LABS: BASO# 0.02 X1000 (0.0-0.2); BASO% 0.4 % (0.0-0.8); EOS# 0.01 X1000 (0.0-0.7); EOS% 0.2 % (0.0-10.0); HEMATOCRIT 33.3 % (42.0-52.0); HEMOGLOBIN 11.1 g/dL (14.0-18.0); IMM GRAN% 3.6 % (0.0-0.5); LYMPH# 0.57 X1000 (1.2-3.4); LYMPH% 10.3 % (20.5-51.1); MCH 34.2 PG (27-31); MCHC 33.3 g/dL (33-37); MCV 102.5 FL (81-99); MONO% 9.1 % (1.7-9.3); NEUT# 4.21 X1000 (1.4-6.5); NEUT% 76.4 % (42.2-75.2); RBC 3.25 XMIL (4.7-6.1); RDW 14.8 % (11.5-14.5); WBC 5.51 X1000 (4.8-10.8)
[2020-01-18 08:13] LABS: PLT 9 X1000 (130-400)
[2020-01-18 08:15] LABS: AGAP 13; ALB/GLOB RATIO 0.6; ALBUMIN 2.5 g/dL (3.5-5.0); BUN 50 mg/dL (8-22); CALCIUM 8.5 mg/dL (8.8-10.2); CHLORIDE 104 mmol/L (98-107); COSMO 304; CREATININE 0.7 mg/dL (0.7-1.2); ESTIMATED GFR > 60; GLUCOSE 328 mg/dL (70-104); GOT 390 U/L (10-34); GPT 56 U/L (10-44); MAGNESIUM 2.9 mg/dL (1.5-2.7); POTASSIUM 4.9 mmol/L (3.5-5.1); SODIUM 139 mmol/L (136-145); TCO2 22 mmol/L (25-35); TOTAL BILIRUBIN 4.16 mg/dL (0.20-1.00); TOTAL PROTEIN 6.7 g/dL (6.3-8.3)
[2020-01-18 08:29] LABS: ALKALINE PHOSPHATASE 1550 U/L (32-122)
[2020-01-18] MEDS: NICODERM PATCH TD SCH (09:48)
[2020-01-18] MEDS: DECADRON IV SCH (09:48)
[2020-01-18] MEDS: PATIENT'S OWN MED - CHEMO PO SCH (09:50)
[2020-01-18] MEDS: MIRALAX PO SCH (09:51)
[2020-01-18] MEDS: PERICOLACE PO SCH (09:51)
[2020-01-18] MEDS: PULMICORT INH SCH (09:52)
[2020-01-18] MEDS ORDERED: MORPHINE IV PRN (10:02)
[2020-01-18 11:15] VITALS: BP 168/92
--- NOTE | 2020-01-18 12:42 | DISCHARGE SUMMARY ---
ADMISSION DATE: 01/11/2020 DISCHARGE DATE: 01/18/2020 Mr. Chapman was admitted on 01/11/2020, and discharged home to home hospice on 01/18/2020 HISTORY AND HOSPITAL COURSE: This is a 69-year-old who presented on 01/11/2020 with weakness, dizziness, became short of breath. He has had at least a 20-pound weight loss over the last month. He has a history of pancreatic cancer with metastasis for at least a year and a half. Also a history of chronic nausea, anxiety, chronic pain syndrome. He smokes 2 packs of cigarettes a day, and he has immune thrombocytopenic purpura. Platelet count is dropping. He had quite a bit of bruising. In general, he is weaker, eating less, and we had transfused him some platelets, but unable to get his platelet count up. He has history of pancreatic cancer with metastasis, status post Whipple procedure. He has COPD. We put him on supplementary oxygen. We gave him 2 doses of IV immunoglobulin, and unable to improve his platelet count. Gave him several transfusions of platelets, and his platelet count still remained around 6000. He had developed more confusion, and electrolytes were good, renal function looked good. Family wanted to take him home with hospice for comfort care. We had attempted to give him several rounds of Promacta without any real success, so will discharge him home with hospice care. He can take Tylenol as needed, and give him some comfort measures. He does take Desyrel 25 mg at bedtime. He was on some Gertrudis-Colace and MiraLAX. cc: Mauricio eMndosa MD
--- NOTE | 2020-01-18 13:05 | HEMO/ONC PROGRESS NOTE ---
DATE: 01/18/2020 SUBJECTIVE: Mr. Chapman was not alert or awake this morning on my arrival. I called his name and touched him and did not get any response. The patient is lying in bed with eyes closed, moaning continuously. He appears to be comfortable. No family at bedside. OBJECTIVE: Vital Signs: Temperature 99.7 degrees, pulse rate 102, respiratory rate 26, blood pressure 168/92, O2 saturation 95% on nasal cannula at 3 L. He is in 0/10 pain. General: The patient does not appear to be in any acute distress. Respiratory: Lung sounds are clear to auscultation. Cardiovascular: Regular rate and rhythm. Abdomen: Soft, nontender, nondistended. Skin: The patient has petechiae noted circumferentially around his Port-A-Cath, as well as bilateral lower extremities. He has significant numerous ecchymoses to upper arms and lower extremities. LABORATORY DATA: WBCs 5.51, hemoglobin 11.1, hematocrit 33.3, platelet count 9000. Total bilirubin 4.16, AST 390, ALT 56, alkaline phosphatase 1550. ASSESSMENT AND PLAN: 1. Idiopathic thrombocytopenic purpura. The patient is status post 2 doses of intravenous immunoglobulin without response. He has also been on Promacta since last Saturday, and has not had a response. The patient's platelet count continues to be less than 10,000. He has had several platelet transfusions as well, without an increase in platelet count. The patient will be sent home with hospice today. He is going home with [facility]. 2. Pancreatic cancer with metastasis to the liver. This patient has been slowly declining over the last several weeks. See plans above infusion. 3. Confusion. The patient has had increased confusion. He did not seem to be responding to me this morning. Dictated by AKOSUA Ruffin for Liam Bass MD As above. Condition declining. Over the weekend he was placed on hospice. Family agreeable. Discharge when possible. Liam Bass MD cc: Liam Bass MD [facility]
== END 2020-01-18 13:46 | disposition hospice, home (50) | DRG 813 ==
LOC: P.ED 12:46 → 3N 16:37 → SUATTDRO 16:37
PROVIDERS: ADMIT Family Medicine; ATTEND Emergency Medicine